=== PATIENT | female | born 1945 | race Caucasian/White ===

== ENCOUNTER 2017-02-14 10:11 | Inpatient (IN) | payer MEDICARE, BC ==
[~2017-02-14 10:11] MED LIST: EPINEPHrine 1 MG/ML SDV ONE; Lactated Ringers 1,000 ML IV SCH; Lidocaine 1%/Sod Bicarbonate in NS 8.4% 1 ML Syringe IV PRN; Ropivacaine 0.5% 5 MG/ML 30 ML SDV ONE; Sodium Chloride 0.9% 10 ML Syringe FLUSH PRN
[2017-02-14] MEDS ORDERED: Lidocaine 1%/Sod Bicarbonate in NS 8.4% 1 ML Syringe PRN (10:20)
[2017-02-14] MEDS ORDERED: Vancomycin 1 GM SDV ONE (10:53)
[2017-02-14] MEDS ORDERED: fentaNYL 100 MCG/2 ML SDV ONE ×3 (10:58→16:41)
[2017-02-14] MEDS ORDERED: Lidocaine 1% 4 ML ONE ×2 (10:58→12:17)
[2017-02-14] MEDS ORDERED: Midazolam 1 MG/ML 2 ML SDV ONE (10:58)
[2017-02-14] MEDS ORDERED: Scopolamine 1.5 MG Transdermal Patch TOP ONE (11:00)
[2017-02-14] MEDS ORDERED: Docusate Sodium 100 MG Cap PO PRN (11:36)
[2017-02-14] MEDS ORDERED: Cyclobenzaprine 10 MG Tab PO PRN (11:36)
[2017-02-14] MEDS ORDERED: Sennosides 8.6 MG Tab PO PRN (11:36)
[2017-02-14] MEDS ORDERED: Naloxone 0.4 MG/ML SDV IVPUSH PRN (11:36)
[2017-02-14] MEDS ORDERED: Magnesium Hydroxide 400 MG/5 ML Susp 30 ML Cup PO PRN (11:36)
[2017-02-14] MEDS ORDERED: Bisacodyl 5 MG Tab PO PRN (11:36)
--- NOTE | 2017-02-14 11:56 | PCM.SN ---
- Free Text/Narrative Note: Anesthesia Note: (Interscalene block note) Dr. Orozco present for the block Date: 02/14/2017 Time Out: 1114 Start: 1125 Stop: 1131 Surgical Procedure: Left Reverse Total Shoulder arthroplasty Diagnosis: Left shoulder osteoarthritis Current Procedure: Left interscalene block under US guidance for postoperative pain control requested by Dr. Mckinney. Patient chart reviewed, risk/benefits discussed with patient, consent obtained. Patient positioned supine, monitors/alarms on, oxygen placed via nasal cannula at 2 LPM. IV sedation administered: Versed 2mg IV @ 1114 Fentanyl 100 mcg IV @ 1119 Left shoulder prepped with chloraprep x1. Sterile drapes placed with aseptic technique. Under US guidance (sterile US sleeve) left subclavian artery visualized along with the left brachial plexus. Plexus followed cephalad up to C6 cricoid level, and area localized with 2mls of 1% lidocaine. 22gauge 2 inch stimiplex needle inserted under US and guided to brachial plexus C5-C6 trunks with 0.44mV with stimulation of biceps noted. Stimulation abolished at 0.2mVs. 1ml of Normal Saline injected with loss of stimulation up to 0.7mA to confirm needle not placed intraneurally. Incremental injection of 5mls with negative aspiration prior to each injection of 0.5% ropivacaine with 1:200,000 epinephrine. Total volume=30mls. Vital Signs: 1115 pre HR: 76 RR: 18 BP: 157/70 Spo2: 99% on 2 LPM nasal cannula 1131 post HR: 75 RR: 14 BP: 126/60 Spo2: 98% on 2LPM nasal cannula
--- NOTE | 2017-02-14 12:06 | PCM.PREANE ---
Preanesthetic Assessment - Procedure Proposed Procedure: Left reverse total shoulder replacement - Anesthesia/Transfusion/Family Hx Anesthesia History: No Prior Anesthesia Type of Anesthesia Reaction: Excessive Nausea/Vomiting Family History of Anesthesia Reaction: No Transfusion History: Prior Transfusion Without Reaction (patient stated she had a transfusion with one of her hip replacement and everything went well) Type of Transfusion Reactions: Reports: Unknown Intubation History: Unknown - Review of Systems General: No Symptoms Pulmonary: No Symptoms Cardiovascular: Other (HTN, hyperlipidemia) Gastrointestinal: No symptoms Neurological: No Symptoms Other: Reports: None - Physical Assessment NPO Status Date: 02/14/17 NPO Status Time: 00:00 O2 Sat by Pulse Oximetry: 98 Respiratory Rate: 14 Vital Signs: Last Vital Signs Temp 37.1 C 02/14/17 10:25 Pulse 75 02/14/17 11:30 Resp 14 02/14/17 11:30 BP 126/60 02/14/17 11:30 Pulse Ox 98 02/14/17 11:30 Height: 1.5 m Weight: 70.76 kg ASA Class: 2 Mental Status: Alert & Oriented x3 Airway Class: Mallampati = 2 Dentition: Reports: Dentures (upper and lower ) Thyro-Mental Finger Breadths: 3 Mouth Opening Finger Breadths: 3 ROM/Head Extension: Full Lungs: Clear to auscultation, Normal respiratory effort Cardiovascular: Regular Rate, Regular Rhythm - Lab Values: Laboratory Last Values MRSA (PCR) Negative 01/28/17 12:16 - Allergies Allergies/Adverse Reactions: Allergies Allergy/AdvReac Type Severity Reaction Status Date / Time meloxicam AdvReac GI UPSET Verified 02/14/17 11:04 Penicillins AdvReac Other Verified 02/14/17 11:04 - Blood Blood Available: No Product(s) Available: None - Anesthesia Plan Pre-Op Medication Ordered: None - Acknowledgements Anesthesia Type Planned: General Anesthesia, Regional Block (left interscalene block) Pt an Appropriate Candidate for the Planned Anesthesia: Yes Alternatives and Risks of Anesthesia Discussed w Pt/Guardian: Yes Pt/Guardian Understands and Agrees with Anesthesia Plan: Yes PreAnesthesia Questionnaire HEENT History: Reports: Impaired Vision Other HEENT History: Uses reading glasses, full dentures Cardiovascular History: Reports: High Cholesterol, Hypertension, Other (See Below) Other Cardiovascular History: lower extremity edema. Takes PRN lasix and potassium. Respiratory History: Reports: None, SOB, Other (See Below) Gastrointestinal History: Reports: GERD, PUD, Other (See Below) Other Gastrointestinal History: dysphagia, hematochezia, ulcers as a child. 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: Reports: Polycystic Ovaries, Other OB/BYN History: x 2 Musculoskeletal History: Reports: Arthritis, Back Pain, Chronic, Osteoarthritis , Other (See Below) Other Musculoskeletal History: Right ankle pain, foot arthritis, bilateral hip arthritis, bilateral carpal tunnel syndrome, neuroforaminal stenosis, facet joint degenerative arthritis, R shoulder impingment syndrome, muscle cramps, myofasical pain, polymyalgia rheumatica, cervical spine stenosis, lower extremity weakness Neurological History: Reports: Other (See Below) Other Neuro History: ataxia, frequent falls, polyneuropathy Psychiatric History: Reports: Panic Attack, Other (See Below) Other Psychiatric History: insomnia Endocrine/Metabolic History: Reports: Obesity/BMI 30+, Vitamin D Deficiency Hematologic History: Reports: Anemia, Iron Deficiency, Other (See Below) Other Hematologic History: multiple contusions, vitamin b 12 deficiency Immunologic History: Reports: Other (See Below) Other Immunologic History: polymyalgia rheumatica Oncologic (Cancer) History: Reports: Basal Cell Carcinoma Dermatologic History: Reports: None - Infectious Disease History Infectious Disease History: Reports: MRSA - Past Surgical History HEENT Surgical History: Reports: Tonsillectomy Cardiovascular Surgical History: Reports: None GI Surgical History: Reports: Colonoscopy, EGD, Hernia Repair/Other Other GI Surgeries/Procedures: partial gastrectomy Female Surgical History: Reports: Hysterectomy Endocrine Surgical History: Reports: None Neurological Surgical History: Reports: Other (See Below) Other Neurological Surgeries/Procedures: posts in back. Musculoskeletal Surgical History: Reports: Carpal Tunnel, Other (See Below) Other Musculoskeletal Surgeries/Procedures:: bilateral carpal tunnel release, left foot bunionectomy, right knee replacement, bilateral hip replacments Oncologic Surgical History: Reports: None Dermatological Surgical History: Reports: Skin Biopsy - SUBSTANCE USE Smoking Status *Q: Never Smoker Tobacco Use Within Last Twelve Months: No Second Hand Smoke Exposure: No Days Per Week of Alcohol Use: 0 Number of Drinks Per Day: 0 Total Drinks Per Week: 0 Recreational Drug Use History: No - HOME MEDS Home Medications: Home Meds RX: Cyanocobalamin (Vitamin B-12) [Cyanocobalamin Injection] 1,000 mcg IM ASDIRECTED 12/13/14 [History] RX: Furosemide [Lasix] 40 mg PO DAILY PRN 12/13/14 [History] RX: Gabapentin 800 mg PO BID 12/13/14 [History] RX: Pantoprazole [ProTONIX] 40 mg PO BID 12/13/14 [History] RX: Cholecalciferol (Vitamin D3) [Vitamin D3] 2,000 mg PO BID 12/16/14 [History] RX: Aspirin/Acetaminophen/Caffeine [Migraine Relief Caplet] 2 - 3 tab PO Q6HR PRN 04/23/16 [History] RX: Clotrimazole [Mycelex] 10 mg PO QID PRN 04/23/16 [History] RX: Diphenhyd/Lidocaine/Nystatin [Magic Mouthwash] 1 dose PO QID PRN 04/23/16 [ History] RX: Potassium Chloride [Klor-Con 10] 10 meq PO DAILY PRN 04/23/16 [History] Excedrin Pm 2 tab PO BEDTIME 09/03/16 [History] RX: Doxycycline Hyclate 1 cap PO BID 09/03/16 [History] RX: Fluconazole [Diflucan] 1 tab PO Q72H 09/03/16 [History] RX: Gabapentin 1 tab PO DAILY PRN 09/03/16 [History] RX: Melatonin 1 - 2 tab PO BEDTIME PRN 09/03/16 [History] RX: Ondansetron 1 tab PO QID PRN 09/03/16 [History] RX: Simvastatin [Zocor] 1 tab PO DAILY 09/03/16 [History] RX: traMADol HCl [Tramadol HCl] 2 tab PO TID 09/03/16 [History] RX: Acetaminophen/oxyCODONE [Percocet 325-5 MG] 1 - 2 tab PO Q4H PRN #60 tablet 09/08/16 [Rx] RX: Cyclobenzaprine [Flexeril] 10 mg PO TID PRN #40 tablet 09/08/16 [Rx] RX: Rivaroxaban [Xarelto] 10 mg PO DAILY #33 tablet 09/08/16 [Rx] - CURRENT (IN HOUSE) MEDS Current Meds: Current Medications Aspirin (Ecotrin) 325 mg PO BID [place] Bisacodyl (Dulcolax) 5 mg PO DAILY PRN PRN Reason: Constipation Cyclobenzaprine HCl (Flexeril) 10 mg PO TID PRN PRN Reason: Spasms Stop: 02/14/17 21:01 Docusate Sodium (Colace) 100 mg PO BID PRN PRN Reason: Constipation Famotidine (Pepcid) 20 mg PO Q12H [facility] Lactated Ringer's (Ringers, Lactated) 1,000 mls @ 125 mls/hr IV ASDIRECTED [facility] Stop: 02/14/17 23:00 Last Admin: 02/14/17 10:42 Dose: 125 mls/hr Cefazolin Sodium/Dextrose 2 gm (/ Premix) 50 mls @ 100 mls/hr IV Q8H [facility] Stop: 02/15/17 11:29 Lidocaine/Sodium Bicarbonate (Buffered Lidocaine 1% In Ns 8.4%) 0.25 ml .XX ONETIME PRN PRN Reason: Prior to IV Start Stop: 02/14/17 14:00 Last Admin: 02/14/17 10:42 Dose: 0.25 ml Magnesium Hydroxide (Milk Of Magnesia) 30 ml PO BID PRN PRN Reason: Constipation Morphine Sulfate (Morphine) 2 mg IVPUSH Q2H PRN PRN Reason: Breakthrough Pain Ondansetron HCl (Zofran) 4 mg IVPUSH Q6H PRN PRN Reason: Nausea/Vomiting Oxycodone/Acetaminophen (Percocet 325-5 Mg) 1 - 2 tab PO Q4H PRN PRN Reason: Pain Senna (Senna) 8.6 mg PO BID PRN PRN Reason: Constipation Sodium Chloride (Saline Flush) 10 ml FLUSH ASDIRECTED PRN PRN Reason: Keep Vein Open Stop: 02/14/17 14:00 Vancomycin HCl (Pharmacy To Dose - Vancomycin) 0 dose .XX ASDIRECTED PRN PRN Reason: RX TO DOSE POSTOP X 24 HOURS Stop: 02/15/17 13:00 Discontinued Medications Bupivacaine HCl (Marcaine 0.25%) Confirm Administered Dose 30 ml .ROUTE .STK- MED ONE Stop: 02/14/17 10:54 Cefazolin Sodium (Ancef) Confirm Administered Dose 2 gm .ROUTE .STK-MED ONE Stop: 02/14/17 10:54 Epinephrine HCl (Adrenalin 1:1000) Confirm Administered Dose 1 mg .ROUTE .STK- MED ONE Stop: 02/14/17 09:46 Fentanyl (Sublimaze) Confirm Administered Dose 100 mcg .ROUTE .STK-MED ONE Stop: 02/14/17 10:59 Vancomycin HCl 1 gm/ Sodium (Chloride) 250 mls @ 250 mls/hr IV ONETIME ONE Stop: 02/14/17 11:44 Last Admin: 02/14/17 11:57 Dose: 250 mls/hr Lidocaine HCl (Xylocaine-Mpf 1%) Confirm Administered Dose 4 mls @ as directed .ROUTE .STK-MED ONE Stop: 02/14/17 10:59 Lidocaine/Sodium Bicarbonate (Buffered Lidocaine 1% In Ns 8.4%) 0.25 ml IV ONETIME PRN PRN Reason: Prior to IV Start Stop: 02/14/17 14:00 Midazolam HCl (Versed 1 Mg/Ml) Confirm Administered Dose 2 mg .ROUTE .STK-MED ONE Stop: 02/14/17 10:59 Naloxone HCl (Narcan) 0.1 mg IVPUSH Q5M PRN PRN Reason: Oversedation Stop: 02/14/17 11:52 Ropivacaine (Naropin 0.5%) Confirm Administered Dose 30 ml .ROUTE .STK-MED ONE Stop: 02/14/17 09:47 Scopolamine (Transderm-Scop) 1.5 mg TOP ONETIME ONE Stop: 02/14/17 11:01 Last Admin: 02/14/17 11:02 Dose: 1.5 mg Tranexamic Acid (Cyklokapron) Confirm Administered Dose 1,000 mg .ROUTE .STK- MED ONE Stop: 02/14/17 10:53 Vancomycin HCl (Vancomycin) Confirm Administered Dose 1 gm .ROUTE .STK-MED ONE Stop: 02/14/17 10:54
[2017-02-14] MEDS ORDERED: Rocuronium 50 MG/5 ML Vial ONE (12:16)
[2017-02-14] MEDS ORDERED: Ondansetron 4 MG/2 ML SDV ONE (12:16)
[2017-02-14] MEDS ORDERED: Propofol 200 MG/20 ML SDV ONE (12:16)
[2017-02-14] MEDS: Bupivacaine 0.25% 30 ML SDV ONE ×2 (13:10→15:55)
[2017-02-14] MEDS: Iodine/Sodium Iodide 2% Tincture 30 ML Bottle ONE ×2 (13:13→15:49)
--- NOTE | 2017-02-14 13:23 | PCM.CONS ---
H&P History of Present Illness - General Date of Service: 02/14/17 Admit Problem/Dx: Admission Diagnosis/Problem Admission Diagnosis/Problem Osteoarthritis of glenohumeral joint Source of Information: Patient, Family, Old Records, Provider, RN Notes Reviewed History Limitations: Reports: Physical Impairment - History of Present Illness Initial Comments - Free Text/Narative: This is a 71-year-old, white female, with past medical history of HTN, HLD, OA, PUD, GERD, hiatal hernia repair, partial gastrectomy, osteoporosis, myalgias/PMR , muscle cramps, C-spine with myelopathy, vitamin B and D deficiency, polyneuropathy, panic attack, iron deficiency anemia, and insomnia who underwent right total shoulder reverse arthroplasty post operative day zero. Patient complaints of headache, nausea and pyrosis. Her pain is controlled. She denies any other acute issues. Medicine was consulted for postoperative care. - Related Data Allergies/Adverse Reactions: Allergies Allergy/AdvReac Type Severity Reaction Status Date / Time meloxicam AdvReac GI UPSET Verified 02/14/17 11:04 Penicillins AdvReac Other Verified 02/14/17 11:04 Home Medications: Home Meds Cyanocobalamin (Vitamin B-12) [Cyanocobalamin Injection] 1,000 mcg IM ASDIRECTED 12/13/14 [History] Furosemide [Lasix] 40 mg PO DAILY PRN 12/13/14 [History] Gabapentin 800 mg PO TID 12/13/14 [History] Pantoprazole [ProTONIX] 40 mg PO BID 12/13/14 [History] Cholecalciferol (Vitamin D3) [Vitamin D3] 2,000 mg PO BID 12/16/14 [History] Aspirin/Acetaminophen/Caffeine [Migraine Relief Caplet] 2 - 3 tab PO Q6HR PRN [History] Clotrimazole [Mycelex] 10 mg PO QID PRN 04/23/16 [History] Diphenhyd/Lidocaine/Nystatin [Magic Mouthwash] 1 dose PO QID PRN 04/23/16 [ History] Potassium Chloride [Klor-Con 10] 10 meq PO DAILY PRN 04/23/16 [History] Doxycycline Hyclate 1 cap PO BID 09/03/16 [History] Excedrin Pm 2 tab PO BEDTIME 09/03/16 [History] Fluconazole [Diflucan] 1 tab PO Q72H 09/03/16 [History] Gabapentin 1 tab PO DAILY PRN 09/03/16 [History] Melatonin 3 tab PO BEDTIME PRN 09/03/16 [History] Ondansetron 1 tab PO QID PRN 09/03/16 [History] Simvastatin [Zocor] 1 tab PO DAILY 09/03/16 [History] traMADol HCl [Tramadol HCl] 2 tab PO TID 09/03/16 [History] Acetaminophen/oxyCODONE [Percocet 325-5 MG] 1 - 2 tab PO Q4H PRN #60 tablet 03/17 [Rx] Rivaroxaban [Xarelto] 10 mg PO DAILY #33 tablet 09/08/16 [Rx] Cyclobenzaprine [Flexeril] 10 mg PO BID PRN 02/14/17 [History] Past Medical History HEENT History: Reports: Impaired Vision Other HEENT History: Uses reading glasses, full dentures Cardiovascular History: Reports: High Cholesterol, Hypertension, Other (See Below) Other Cardiovascular History: lower extremity edema. Takes PRN lasix and potassium. Respiratory History: Reports: None, SOB, Other (See Below) Gastrointestinal History: Reports: GERD, PUD, Other (See Below) Other Gastrointestinal History: dysphagia, hematochezia, ulcers as a child. 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: Polycystic Ovaries, Other OB/BYN History: x 2 Musculoskeletal History: Reports: Arthritis, Back Pain, Chronic, Osteoarthritis , Other (See Below) Other Musculoskeletal History: Right ankle pain, foot arthritis, bilateral hip arthritis, bilateral carpal tunnel syndrome, neuroforaminal stenosis, facet joint degenerative arthritis, R shoulder impingment syndrome, muscle cramps, myofasical pain, polymyalgia rheumatica, cervical spine stenosis, lower extremity weakness Neurological History: Reports: Other (See Below) Other Neuro History: ataxia, frequent falls, polyneuropathy Psychiatric History: Reports: Panic Attack, Other (See Below) Other Psychiatric History: insomnia Endocrine/Metabolic History: Reports: Obesity/BMI 30+, Vitamin D Deficiency Hematologic History: Reports: Anemia, Iron Deficiency, Other (See Below) Other Hematologic History: multiple contusions, vitamin b 12 deficiency Immunologic History: Reports: Other (See Below) Other Immunologic History: polymyalgia rheumatica Oncologic (Cancer) History: Reports: Basal Cell Carcinoma Dermatologic History: Reports: None - Infectious Disease History Infectious Disease History: Reports: MRSA - Past Surgical History HEENT Surgical History: Reports: Tonsillectomy Cardiovascular Surgical History: Reports: None GI Surgical History: Reports: Colonoscopy, EGD, Hernia Repair/Other Other GI Surgeries/Procedures: partial gastrectomy Female Surgical History: Reports: Hysterectomy Endocrine Surgical History: Reports: None Neurological Surgical History: Reports: Other (See Below) Other Neurological Surgeries/Procedures: posts in back. Musculoskeletal Surgical History: Reports: Carpal Tunnel, Other (See Below) Other Musculoskeletal Surgeries/Procedures:: bilateral carpal tunnel release, left foot bunionectomy, right knee replacement, bilateral hip replacments Oncologic Surgical History: Reports: None Dermatological Surgical History: Reports: Skin Biopsy Social & Family History - Family History Family Medical History: Noncontributory - Tobacco Use Smoking Status *Q: Never Smoker Second Hand Smoke Exposure: No - Caffeine Use Caffeine Use: Reports: None - Alcohol Use Days Per Week of Alcohol Use: 0 Number of Drinks Per Day: 0 Total Drinks Per Week: 0 - Recreational Drug Use Recreational Drug Use: No Drug Use in Last 12 Months: No H&P Review of Systems - Review of Systems: Review Of Systems: See Below General: Denies: Fever, Chills, Malaise, Weakness, Fatigue HEENT: Reports: Headaches Pulmonary: Denies: Shortness of Breath Cardiovascular: Denies: Chest Pain, Palpitations, Dyspnea on Exertion, Lightheadedness Gastrointestinal: Reports: Nausea, Other (pyrosis). Denies: Abdominal Pain Genitourinary: Reports: No Symptoms Musculoskeletal: Reports: No Symptoms Skin: Denies: Cyanosis, Pruritis, Rash, Erythema Psychiatric: Denies: Confusion, Depression, Anxiety, Hallucinations, Suicidal Ideation Neurological: Reports: Headache, Difficulty Walking, Weakness, Gait Disturbance. Denies: Confusion Hematologic/Lymphatic: Reports: No Symptoms Immunologic: Reports: No Symptoms Exam - Exam Exam: See Below - Vital Signs Vital Signs: Last Vital Signs Temp 37.1 C 02/14/17 10:25 Pulse 75 02/14/17 11:30 Resp 14 02/14/17 12:07 BP 126/60 02/14/17 11:30 Pulse Ox 98 02/14/17 12:07 Weight: 70.76 kg - Exam Quality Assessment: Supplemental Oxygen General: Alert, Oriented, Cooperative, Mild Distress HEENT: Conjunctiva Clear, EACs Clear, EOMI, Hearing Intact, Mucosa Moist & [place] , Nares Patent, Normal Nasal Septum, Posterior Pharynx Clear, Pupils Equal, Pupils Reactive Neck: Supple, Trachea Midline, +2 Carotid Pulse wo Bruit Lungs: Normal Respiratory Effort, Decreased Breath Sounds Cardiovascular: Regular Rate, Regular Rhythm Abdomen: Normal Bowel Sounds, Soft. No: Organomegaly, Tenderness (Female) Exam: Other (indwelling young catheter) Rectal (Female) Exam: Deferred Back Exam: Decreased Range of Motion Extremities: Normal Inspection, Normal Pulses, Other (left arm currently immobilized). No: Edema Peripheral Pulses: 2+: Posterior Tibial (L), Posterior Tibial (R), Dorsalis Pedis (L), Dorsalis Pedis (R) Skin: Warm, Dry, Intact, Other (surgical scar on rigth shoulder) Neuro Extensive - Mental Status: Oriented x3, Normal Cognition, Memory Intact Neuro Extensive - Motor, Sensory, Reflexes: CN II-XII Intact (limited but fairly intact), Abnormal Gait Psychiatric: Alert, Normal Affect Consult PN Assessment/Plan POD#: 0 Procedures: Procedures AIRWAY INHALATION TREATMENT (04/26/16) BLOOD CULTURE FOR BACTERIA (12/16/14) BLOOD TRANSFUSION SERVICE (04/26/16) BLOOD TYPING SEROLOGIC ABO (09/06/16) BLOOD TYPING SEROLOGIC RH(D) (09/06/16) C-REACTIVE PROTEIN (04/26/16) CHEST WALL MANIPULATION (04/26/16) CHEST WALL MANIPULATION (04/26/16) CHEST X-RAY 1 VIEW FRONTAL (12/16/14) CHEST X-RAY 2VW FRONTAL&LATL (04/26/16) COMPATIBILITY TEST ANTIGLOB (04/26/16) COMPLETE CBC AUTOMATED (04/26/16) COMPLETE CBC W/AUTO DIFF WBC (09/06/16) COMPREHEN METABOLIC PANEL (09/06/16) DRAIN/INJ JOINT/BURSA W/O US (03/30/16) DXA BONE DENSITY AXIAL (04/22/16) ELECTROCARDIOGRAM TRACING (12/16/14) ELECTROLYTE PANEL (09/06/16) EVALUATE PT USE OF INHALER (04/26/16) EXTREMITY STUDY (04/26/16) FLUOROSCOPE EXAMINATION (12/16/14) GAIT TRAINING THERAPY (09/06/16) HEMATOCRIT (04/26/16) HEMOGLOBIN (04/26/16) MEASURE BLOOD OXYGEN LEVEL (04/26/16) MEASURE BLOOD OXYGEN LEVEL (12/16/14) METABOLIC PANEL TOTAL CA (09/06/16) MICROBE SUSCEPTIBLE SHAMA (12/16/14) MR-STAPH DNA AMP PROBE (04/15/16) NEEDLE LOCALIZATION BY XRAY (03/21/15) OT EVAL LOW COMPLEX 30 MIN (09/06/16) OT EVALUATION (04/26/16) PROTHROMBIN TIME (09/06/16) PT EVAL LOW COMPLEX 20 MIN (09/06/16) PT EVALUATION (04/26/16) RBC ANTIBODY SCREEN (09/06/16) ROUTINE VENIPUNCTURE (09/06/16) SELF CARE MNGMENT TRAINING (09/06/16) THERAPEUTIC ACTIVITIES (09/06/16) THERAPEUTIC EXERCISES (09/06/16) URINALYSIS AUTO W/SCOPE (04/26/16) URINE BACTERIA CULTURE (12/16/14) URINE CULTURE/COLONY COUNT (12/16/14) X-RAY EXAM HIP UNI 1 VIEW (09/06/16) X-RAY EXAM OF SHOULDER (12/16/14) Problem List Initiated/Reviewed/Updated: Yes Plan: Assessment: Acute: Post-Operative Care State - Fairly stable - Continue to monitor for hemodynamic instability S/p Left Total Shoulder Reverse Arthroplasty - Stable - DVT and Pain Management as per primary team Hx/o Chronic Left Shoulder Pain 2/2 OA - Pain Management as per primary team Post Operative Pyrosis - Carries hx/o GERD/PUD - Protonix IVP x1 now - Resume Home Dose PPI Post-Operative Nausea/Vomiting - PRN Anti-emisis - Scopolamine Patch - Benadryl IVP to augment if no relief Post-Operative ANTHONY - Patient drinks coffee at least 4 cups a day - Fioricet PRN for treatment Chronic: HTN HLD PUD Partial Gastrectomy GERD Hiatal Hernia Repair Osteoporosis Myalgia/PMR Muscle Cramps C-Spine with Myelopathy Polyneuropathy APOLONIA Vit B and D Deficiency Panic Attack Insomnia Plan: She is clinically stable Routine AM labs Continue home meds PT/OT consult IS q2 awake Thank you for the opportunity to participate in the management of this patient. Requesting Provider: Dr. Mckinney Date Consult Requested: 02/14/17 Reason for Consult: Post-Operative Care Patient History Reviewed: Yes Admission H&P Reviewed: Yes Consult Result/Summary: Fairly Stable
[2017-02-14] MEDS ORDERED: Phenylephrine/Normal Saline 100 MCG/ML 10 ML Syringe ONE (14:22)
[2017-02-14] MEDS: ceFAZolin 1 GM Vial ONE ×2 (14:26→15:35)
[2017-02-14] MEDS ORDERED: Lactated Ringers 1,000 ML ONE (15:49)
[2017-02-14] MEDS ORDERED: fentaNYL 250 MCG/5 ML SDV IVPUSH PRN (16:31)
--- NOTE | 2017-02-14 16:33 | PCM.POSTAN ---
POST ANESTHESIA ASSESSMENT - MENTAL STATUS Mental Status: alert, oriented - VITAL SIGNS Pulse Rate: 96 SaO2: 95 Resp Rate: 14 Blood Pressure: 134/62 Temperature: 36.6 C - RESPIRATORY Respiratory Status: respiratory rate WNL, airway patent, O2 saturation stable, supplemental oxygen - CARDIOVASCULAR CV Status: pulse rate WNL, blood pressure stable - GASTROINTESTINAL GI Status: no symptoms - PAIN Pain Score: 0 - POST OP HYDRATION Hydration Status: adequate & stable - OBSERVATIONS Free Text/Narrative:: no anesthesia complications noted
--- NOTE | 2017-02-14 16:53 | CR ---
Left shoulder: Single portable view of the left shoulder was obtained utilizing portable technique. Comparison: Previous fluoroscopic study performed earlier on the same day left (3:41 PM). Reverse left shoulder prosthesis is seen. Components are aligned. Underlying bony structures are intact. Impression: 1. Satisfactory radiographic appearance of recently placed left shoulder prosthesis. Diagnostic code #1
[2017-02-14] MEDS ORDERED: Diphtheria,Pertussis(Acell),Tetanus Vaccine 0.5 ML SDV IM ONE (17:29)
[2017-02-14] MEDS ORDERED: Pantoprazole 40 MG Vial IVPUSH ONE (18:35)
[2017-02-14] MEDS: Acetaminophen/Butalbital/Caffeine 325-50-40 MG Tab PO PRN (18:49)
[2017-02-14] MEDS: ceFAZolin 2 GM in Premix Bag 1 BAG IV SCH (18:53)
[2017-02-14] MEDS: Famotidine 20 MG Tab PO SCH (20:41)
[2017-02-14] MEDS: Acetaminophen/oxyCODONE 325-5 MG Tab PO PRN (20:41)
[2017-02-14] MEDS ORDERED: NYSTATIN PO PRN (21:11)
[2017-02-14] MEDS ORDERED: Furosemide 40 MG Tab PO PRN (21:11)
[2017-02-14] MEDS ORDERED: MELATONIN PO PRN (21:11)
[2017-02-14] MEDS ORDERED: LIDOCAINE PO PRN (21:11)
[2017-02-14] MEDS ORDERED: GABAPENTIN PO PRN (21:11)
[2017-02-14] MEDS ORDERED: Potassium Chloride 10 MEQ Tab.ER PO PRN (21:11)
[2017-02-14] MEDS ORDERED: DIPHENHYD PO PRN (21:11)
[2017-02-14] MEDS ORDERED: Cyanocobalamin (Vitamin B12) 1,000 MCG/ML SDV IM SCH (21:15)
[2017-02-14] MEDS: Cyclobenzaprine 10 MG Tab PO PRN (23:26)
[2017-02-14] MEDS ORDERED: Temazepam 15 MG Cap PO PRN (23:42)
[2017-02-15] MEDS: Acetaminophen/oxyCODONE 325-5 MG Tab PO PRN ×4 (00:20→15:16)
[2017-02-15] MEDS: Benzocaine/Cetylpyridinium/Menthol Lozenge MUCMEM PRN ×2 (00:20→11:19)
[2017-02-15] MEDS: Morphine 2 MG/ML Syringe IVPUSH PRN ×4 (01:43→11:16)
[2017-02-15] MEDS: ceFAZolin 2 GM in Premix Bag 1 BAG IV SCH ×3 (01:45→11:15)
[2017-02-15] MEDS: Acetaminophen/Butalbital/Caffeine 325-50-40 MG Tab PO PRN (03:03)
[2017-02-15] MEDS: Pantoprazole 40 MG Tab.CR PO SCH ×3 (04:27→15:17)
--- NOTE | 2017-02-15 08:00 | PCM.CONSN ---
- General Info Date of Service: 02/15/17 Admission Dx/Problem (Free Text): Admission Diagnosis/Problem Admission Diagnosis/Problem Osteoarthritis of glenohumeral joint Subjective Update: Follow Up Functional Status: Reports: tolerating diet, ambulating, urinating, new symptoms (migraine that is chronic but no more than usual to her). Denies: pain controlled Pain Score: 10 - Review of Systems General: Denies: Fever, Weakness, Fatigue, Malaise, Chills HEENT: Reports: no symptoms Pulmonary: Denies: shortness of breath Cardiovascular: Denies: Chest Pain Gastrointestinal: Denies: Abdominal pain, Nausea, Vomiting Genitourinary: Reports: no symptoms Musculoskeletal: Reports: shoulder pain, arm pain Skin: Denies: cyanosis, jaundice, rash Neurological: Reports: Confusion. Denies: Dizziness, Difficulty Walking, Weakness, Gait Disturbance Psychiatric: Denies: depression, anxiety, agitation, hallucinations Systems Review Comment:: She did not sleep good last night due to pain. She still has migraine but no more than usual. Her pyrosis is gone. No nausea or vomiting. Her pain is not well controlled. - Patient Data Vitals - most recent: Last Vital Signs Temp 36.4 C 02/14/17 20:04 Pulse 99 02/15/17 05:01 Resp 14 02/14/17 20:04 BP 144/64 H 02/15/17 05:01 Pulse Ox 90 L 02/15/17 05:01 Weight - most recent: 72.83 kg I&O - last 24 hours: Intake & Output 02/14/17 02/15/17 02/15/17 22:59 06:59 14:59 Intake Total 900 Output Total 2000 Balance -1100 Lab Results last 24 hrs: Laboratory Results - last 24 hr 02/15/17 02/15/17 Range/Units 05:46 05:46 WBC 9.62 (3.98-10.04) K/mm3 RBC 3.59 L (3.98-5.22) M/mm3 Hgb 11.0 L (11.2-15.7) gm/L Hct 34.2 (34.1-44.9) % MCV 95.3 H (79.4-94.8) fl MCH 30.6 (25.6-32.2) pg MCHC 32.2 (32.2-35.5) g/dl RDW Std Deviation 55.2 H (36.4-46.3) fL Plt Count 282 (182-369) K/mm3 MPV 9.1 L (9.4-12.3) fl Neut % (Auto) 72.7 H (34.0-71.1) % Lymph % (Auto) 12.4 L (19.3-51.7) % Castro % (Auto) 12.6 H (4.7-12.5) % Eos % (Auto) 1.5 (0.7-5.8) Baso % (Auto) 0.6 (0.1-1.2) % Neut # (Auto) 7.00 H (1.56-6.13) K/mm3 Lymph # (Auto) 1.19 (1.18-3.74) K/mm3 Castro # (Auto) 1.21 H (0.24-0.36) K/mm3 Eos # (Auto) 0.14 (0.04-0.36) K/mm3 Baso # (Auto) 0.06 (0.01-0.08) K/mm3 Sodium 140 (136-145) mEq/L Potassium 3.7 (3.5-5.1) mEq/L Chloride 106 (98-107) mEq/L Carbon Dioxide 25 (21-32) mEq/L Anion Gap 12.7 (5-15) BUN 10 (7-18) mg/dL Creatinine 0.8 (0.55-1.02) mg/dL Est Cr Clr Drug Dosing 47.67 mL/min Estimated GFR (MDRD) > 60 (>60) mL/min BUN/Creatinine Ratio 12.5 L (14-18) Glucose 125 H (80-115) mg/dL Calcium 8.7 (8.5-10.1) mg/dL Total Bilirubin 0.3 (0.2-1.0) mg/dL AST 22 (15-37) U/L ALT 20 (14-59) U/L Alkaline Phosphatase 99 (46-116) U/L Total Protein 5.8 L (6.4-8.2) g/dl Albumin 3.1 L (3.4-5.0) g/dl Globulin 2.7 gm/dL Albumin/Globulin Ratio 1.2 (1-2) Med Orders - Current: Current Medications Acetaminophen/Butalbital/Caffeine (Fioricet 325-50-40 Mg) 2 tab PO Q6H PRN PRN Reason: Pain Last Admin: 02/15/17 03:03 Dose: 2 tab Aspirin (Ecotrin) 325 mg PO BID [facility] Benzocaine/Menthol (Cepacol Sore Throat) 1 lozenge MUCMEM QID PRN PRN Reason: Sore Throat Last Admin: 02/15/17 00:20 Dose: 1 lozenge Bisacodyl (Dulcolax) 5 mg PO DAILY PRN PRN Reason: Constipation Cholecalciferol (Vitamin D3) 2,000 units PO BID [facility] Cyclobenzaprine HCl (Flexeril) 10 mg PO BID PRN PRN Reason: muscle spasms Last Admin: 02/14/17 23:26 Dose: 10 mg Docusate Sodium (Colace) 100 mg PO BID PRN PRN Reason: Constipation Famotidine (Pepcid) 20 mg PO Q12H [facility] Last Admin: 02/14/17 20:41 Dose: 20 mg Furosemide (Lasix) 40 mg PO DAILY PRN PRN Reason: Edema Gabapentin (Neurontin) 800 mg PO TID [facility] Cefazolin Sodium/Dextrose 2 gm (/ Premix) 50 mls @ 100 mls/hr IV Q8H [facility] Stop: 02/15/17 11:29 Last Admin: 02/15/17 02:07 Dose: Not Given Vancomycin HCl 1 gm/ Sodium (Chloride) 250 mls @ 250 mls/hr IV Q12H [facility] Stop: 02/15/17 12:59 Last Admin: 02/14/17 23:26 Dose: 250 mls/hr Magnesium Hydroxide (Milk Of Magnesia) 30 ml PO BID PRN PRN Reason: Constipation Morphine Sulfate (Morphine) 2 mg IVPUSH Q2H PRN PRN Reason: Breakthrough Pain Last Admin: 02/15/17 04:26 Dose: 2 mg Ondansetron HCl (Zofran) 4 mg IVPUSH Q6H PRN PRN Reason: Nausea/Vomiting Oxycodone/Acetaminophen (Percocet 325-5 Mg) 1 - 2 tab PO Q4H PRN PRN Reason: Pain Last Admin: 02/15/17 04:25 Dose: 2 tab [facility] Last Admin: 02/15/17 05:06 Dose: Not Given Senna (Senna) 8.6 mg PO BID PRN PRN Reason: Constipation Simvastatin (Zocor) 40 mg PO DAILY [facility] Temazepam (Restoril) 15 mg PO BEDTIME PRN PRN Reason: Sleep Last Admin: 02/15/17 00:20 Dose: 15 mg Vancomycin HCl (Pharmacy To Dose - Vancomycin) 0 dose .XX ASDIRECTED PRN PRN Reason: RX TO DOSE POSTOP X 24 HOURS Stop: 02/15/17 13:00 Discontinued Medications Bupivacaine HCl (Marcaine 0.25%) Confirm Administered Dose 30 ml .ROUTE .STK- MED ONE Stop: 02/14/17 10:54 Last Admin: 02/14/17 15:55 Dose: 30 ml Cefazolin Sodium (Ancef) Confirm Administered Dose 2 gm .ROUTE .STK-MED ONE Stop: 02/14/17 10:54 Last Admin: 02/14/17 15:35 Dose: 2 gm Cholecalciferol (Vitamin D3) units PO BID [facility] Cyanocobalamin (Vitamin B12) 1,000 mcg IM ASDIRECTED [facility] Cyclobenzaprine HCl (Flexeril) 10 mg PO TID PRN PRN Reason: Spasms Stop: 02/14/17 21:01 Diphtheria/Tetanus/Acell Pertussis (Adacel) 0.5 ml IM .ONCE ONE Stop: 02/14/17 17:30 Epinephrine HCl (Adrenalin 1:1000) Confirm Administered Dose 1 mg .ROUTE .STK- MED ONE Stop: 02/14/17 09:46 Fentanyl (Sublimaze) Confirm Administered Dose 100 mcg .ROUTE .STK-MED ONE Stop: 02/14/17 10:59 Fentanyl (Sublimaze) Confirm Administered Dose 100 mcg .ROUTE .STK-MED ONE Stop: 02/14/17 12:27 Fentanyl (Sublimaze) 50 mcg IVPUSH Q5M PRN PRN Reason: PAIN Last Admin: 02/14/17 16:49 Dose: 50 mcg Fentanyl (Sublimaze) Confirm Administered Dose 100 mcg .ROUTE .STK-MED ONE Stop: 02/14/17 16:42 Last Admin: 02/14/17 17:30 Dose: Not Given Glycopyrrolate () Confirm Administered Dose 1 mg .ROUTE .STK-MED ONE Stop: 02/14/17 14:42 Lactated Ringer's (Ringers, Lactated) 1,000 mls @ 125 mls/hr IV ASDIRECTED [facility] Stop: 02/14/17 23:00 Last Admin: 02/14/17 10:42 Dose: 125 mls/hr Vancomycin HCl 1 gm/ Sodium (Chloride) 250 mls @ 250 mls/hr IV ONETIME ONE Stop: 02/14/17 11:44 Last Admin: 02/14/17 11:57 Dose: 250 mls/hr Lidocaine HCl (Xylocaine-Mpf 1%) Confirm Administered Dose 4 mls @ as directed .ROUTE .STK-MED ONE Stop: 02/14/17 10:59 Lidocaine HCl (Xylocaine-Mpf 1%) Confirm Administered Dose 4 mls @ as directed .ROUTE .STK-MED ONE Stop: 02/14/17 12:18 Lactated Ringer's (Ringers, Lactated) Confirm Administered Dose 1,000 mls @ as directed .ROUTE .STK-MED ONE Stop: 02/14/17 15:50 Iodine (Iodine 2% Mild Tincture) Confirm Administered Dose 30 ml .ROUTE .STK- MED ONE Stop: 02/14/17 11:56 Last Admin: 02/14/17 15:49 Dose: 30 ml Lidocaine/Sodium Bicarbonate (Buffered Lidocaine 1% In Ns 8.4%) 0.25 ml IV ONETIME PRN PRN Reason: Prior to IV Start Stop: 02/14/17 14:00 Lidocaine/Sodium Bicarbonate (Buffered Lidocaine 1% In Ns 8.4%) 0.25 ml .XX ONETIME PRN PRN Reason: Prior to IV Start Stop: 02/14/17 14:00 Last Admin: 02/14/17 10:42 Dose: 0.25 ml Midazolam HCl (Versed 1 Mg/Ml) Confirm Administered Dose 2 mg .ROUTE .STK-MED ONE Stop: 02/14/17 10:59 Naloxone HCl (Narcan) 0.1 mg IVPUSH Q5M PRN PRN Reason: Oversedation Stop: 02/14/17 11:52 Non-Formulary Medication (Melatonin [Melatonin]) 3 tab PO BEDTIME PRN PRN Reason: Insomnia Non-Formulary Medication (Gabapentin) 1 tab PO DAILY PRN PRN Reason: Pain Non-Formulary Medication (Excedrin Pm) 2 tab PO BEDTIME [facility] Non-Formulary Medication (Diphenhyd/Lidocaine/Nystatin) 1 dose PO QID PRN PRN Reason: DRY MOUTH Ondansetron HCl (Zofran) Confirm Administered Dose 4 mg .ROUTE .STK-MED ONE Stop: 02/14/17 12:17 Pantoprazole Sodium (Protonix Iv) 40 mg IVPUSH ONETIME ONE Stop: 02/14/17 18:36 Last Admin: 02/14/17 18:50 Dose: 40 mg Phenylephrine HCl (Phenylephrine In Ns 100 Mcg/Ml) Confirm Administered Dose 1 mg .ROUTE .STK-MED ONE Stop: 02/14/17 14:23 Potassium Chloride (Klor-Con 10) 10 meq PO DAILY PRN PRN Reason: Electrolyte Replacement Propofol (Diprivan 20 Ml) Confirm Administered Dose 200 mg .ROUTE .STK-MED ONE Stop: 02/14/17 12:17 Rocuronium [place] (Zemuron) Confirm Administered Dose 50 mg .ROUTE .STK-MED ONE Stop: 02/14/17 12:17 Ropivacaine (Naropin 0.5%) Confirm Administered Dose 30 ml .ROUTE .STK-MED ONE Stop: 02/14/17 09:47 Scopolamine (Transderm-Scop) 1.5 mg TOP ONETIME ONE Stop: 02/14/17 11:01 Last Admin: 02/14/17 11:02 Dose: 1.5 mg Sodium Chloride (Saline Flush) 10 ml FLUSH ASDIRECTED PRN PRN Reason: Keep Vein Open Stop: 02/14/17 14:00 Tranexamic Acid (Cyklokapron) Confirm Administered Dose 1,000 mg .ROUTE .STK- MED ONE Stop: 02/14/17 10:53 Last Admin: 02/14/17 15:59 Dose: 1,000 mg Vancomycin HCl (Vancomycin) Confirm Administered Dose 1 gm .ROUTE .STK-MED ONE Stop: 02/14/17 10:54 - Exam General: alert, oriented, cooperative, no acute distress HEENT: Pupils equal, Pupils reactive, EOMI, Mucous membr. moist/pink Neck: supple, trachea midline, no JVD Lungs: Normal respiratory effort, Decreased breath sounds Cardiovascular: Regular Rate, Regular Rhythm GI/Abdominal Exam: Normal Bowel Sounds, Soft, Non-Tender, No Organomegaly, No Distention (Female) Exam: Deferred Back Exam: Normal Inspection, Decreased Range of Motion, Other (left arm is immobilized) Extremities: Normal Inspection, Normal Range of Motion, Non-Tender, No Pedal Edema Peripheral Pulses: 2+: Dorsalis Pedis (L), Dorsalis Pedis (R) Skin: warm, dry, intact Neurological: no new focal deficit Psy/Mental Status: alert, normal affect, normal mood Consult PN Assessment/Plan POD#: 1 Procedures: Procedures AIRWAY INHALATION TREATMENT (04/26/16) BLOOD CULTURE FOR BACTERIA (12/16/14) BLOOD TRANSFUSION SERVICE (04/26/16) BLOOD TYPING SEROLOGIC ABO (09/06/16) BLOOD TYPING SEROLOGIC RH(D) (09/06/16) C-REACTIVE PROTEIN (04/26/16) CHEST WALL MANIPULATION (04/26/16) CHEST WALL MANIPULATION (04/26/16) CHEST X-RAY 1 VIEW FRONTAL (12/16/14) CHEST X-RAY 2VW FRONTAL&LATL (04/26/16) COMPATIBILITY TEST ANTIGLOB (04/26/16) COMPLETE CBC AUTOMATED (04/26/16) COMPLETE CBC W/AUTO DIFF WBC (09/06/16) COMPREHEN METABOLIC PANEL (09/06/16) DRAIN/INJ JOINT/BURSA W/O US (03/30/16) DXA BONE DENSITY AXIAL (04/22/16) ELECTROCARDIOGRAM TRACING (12/16/14) ELECTROLYTE PANEL (09/06/16) EVALUATE PT USE OF INHALER (04/26/16) EXTREMITY STUDY (04/26/16) FLUOROSCOPE EXAMINATION (12/16/14) GAIT TRAINING THERAPY (09/06/16) HEMATOCRIT (04/26/16) HEMOGLOBIN (04/26/16) MEASURE BLOOD OXYGEN LEVEL (04/26/16) MEASURE BLOOD OXYGEN LEVEL (12/16/14) METABOLIC PANEL TOTAL CA (09/06/16) MICROBE SUSCEPTIBLE SHAMA (12/16/14) MR-STAPH DNA AMP PROBE (04/15/16) NEEDLE LOCALIZATION BY XRAY (03/21/15) OT EVAL LOW COMPLEX 30 MIN (09/06/16) OT EVALUATION (04/26/16) PROTHROMBIN TIME (09/06/16) PT EVAL LOW COMPLEX 20 MIN (09/06/16) PT EVALUATION (04/26/16) RBC ANTIBODY SCREEN (09/06/16) ROUTINE VENIPUNCTURE (09/06/16) SELF CARE MNGMENT TRAINING (09/06/16) THERAPEUTIC ACTIVITIES (09/06/16) THERAPEUTIC EXERCISES (09/06/16) URINALYSIS AUTO W/SCOPE (04/26/16) URINE BACTERIA CULTURE (12/16/14) URINE CULTURE/COLONY COUNT (12/16/14) X-RAY EXAM HIP UNI 1 VIEW (09/06/16) X-RAY EXAM OF SHOULDER (12/16/14) Problem List Initiated/Reviewed/Updated: Yes My Orders last 24 hours: My Active Orders 02/14/17 17:49 Acetaminophen/Butalbital/Caff [Fioricet 325-50-40 MG] 2 tab PO Q6H PRN 02/14/17 21:11 Cyclobenzaprine [Flexeril] 10 mg PO BID PRN Furosemide [Lasix] 40 mg PO DAILY PRN 02/14/17 23:42 Benzocaine/Cetylpyrd/Menthol [Cepacol Sore Throat] 1 lozenge MUCMEM QID PRN Temazepam [Restoril] 15 mg PO BEDTIME PRN 02/15/17 06:00 Pantoprazole [ProTONIX] 40 mg PO BIDAC 02/15/17 09:00 Cholecalciferol (Vitamin D3) [Vitamin D3] 2,000 units PO BID Gabapentin [Neurontin] 800 mg PO TID Simvastatin [Zocor] 40 mg PO DAILY Plan: Assessment: Acute: Post-Operative Care State - Stable - Continue to monitor for hemodynamic instability S/p Left Total Shoulder Reverse Arthroplasty - Stable - DVT and Pain Management as per primary team Hx/o Chronic Left Shoulder Pain 2/2 OA - Pain is not well controlled - Pain Management as per primary team Migraine ANTHONY - She gets it a lot but no more than usual - Cautioned on narcotic abuse - Continue home medications and PRN Fioricet Resolved: Post Operative Pyrosis - Carries hx/o GERD/PUD - Protonix IVP x1 now - Resume Home Dose PPI Post-Operative Nausea/Vomiting - PRN Anti-emisis - Scopolamine Patch - Benadryl IVP to augment if no relief Chronic: HTN HLD PUD Partial Gastrectomy GERD Hiatal Hernia Repair Osteoporosis Myalgia/PMR Muscle Cramps C-Spine with Myelopathy Polyneuropathy APOLONIA Vit B and D Deficiency Panic Attack Insomnia Plan: She remains clinically stable Routine AM labs Continue home meds Continue PT/OT IS q2 awake From the Hospitalist standpoint, patient is doing just fine. We have no further recommendations but to continue current treatment. We are signing off her care. Please feel free to re-consult us for any questions or concerns. Again, thank you for allowing us to participate in the management of this patient.
[2017-02-15] MEDS: Gabapentin 100 MG Cap PO SCH ×2 (08:05→15:17)
[2017-02-15] MEDS: Famotidine 20 MG Tab PO SCH (08:07)
--- NOTE | 2017-02-15 08:07 | CR ---
Left shoulder: Three fluoroscopic spot views were obtained during shoulder surgery utilizing C-arm device. Left shoulder prosthesis is seen. Alignment appears within normal limits. Fluoroscopy time is given as 5.5 seconds. Impression: 1. Findings as noted above. Diagnostic code #2
[2017-02-15] MEDS: Ondansetron 4 MG/2 ML SDV IVPUSH PRN ×2 (08:47→15:17)
[2017-02-15] MEDS ORDERED: Cholecalciferol (Vitamin D3) 1,000 Unit Tab PO SCH ×2 (09:00)
[2017-02-15] MEDS ORDERED: Aspirin 325 MG Tab.EC PO SCH (09:00)
[2017-02-15] MEDS ORDERED: Simvastatin 40 MG Tab PO SCH (09:00)
[2017-02-15] MEDS: Cyclobenzaprine 10 MG Tab PO PRN (11:16)
[2017-02-15 12:19] VITALS: BP 126/82
[2017-02-15] MEDS ORDERED: oxyCODONE 5 MG Tab PO ONE (12:44)
[2017-02-15] MEDS ORDERED: Ketorolac 15 MG/ML SDV IM ONE (12:56)
--- NOTE | 2017-02-15 13:19 | PCM.SURGPN ---
- General Info Date of Service: 02/15/17 POD#: 1 Functional Status: Reports: tolerating diet, ambulating, urinating. Denies: new symptoms - Review of Systems Musculoskeletal: Reports: other (The pt has been participating in P.T. and O.T.) - Patient Data Vitals - most recent: Last Vital Signs Temp 98.8 F 02/15/17 08:00 Pulse 99 02/15/17 12:18 Resp 16 02/15/17 12:18 BP 126/82 02/15/17 12:18 Pulse Ox 94 L 02/15/17 12:18 Weight - most recent: 160 lb 9 oz I&O - last 24 hours: Intake & Output 02/14/17 02/15/17 02/15/17 22:59 06:59 14:59 Intake Total 900 250 Output Total 2000 Balance -1100 250 Lab Results last 24 hrs: Laboratory Results - last 24 hr 02/15/17 02/15/17 Range/Units 05:46 05:46 WBC 9.62 (3.98-10.04) K/mm3 RBC 3.59 L (3.98-5.22) M/mm3 Hgb 11.0 L (11.2-15.7) gm/L Hct 34.2 (34.1-44.9) % MCV 95.3 H (79.4-94.8) fl MCH 30.6 (25.6-32.2) pg MCHC 32.2 (32.2-35.5) g/dl RDW Std Deviation 55.2 H (36.4-46.3) fL Plt Count 282 (182-369) K/mm3 MPV 9.1 L (9.4-12.3) fl Neut % (Auto) 72.7 H (34.0-71.1) % Lymph % (Auto) 12.4 L (19.3-51.7) % [place] % (Auto) 12.6 H (4.7-12.5) % Eos % (Auto) 1.5 (0.7-5.8) Baso % (Auto) 0.6 (0.1-1.2) % Neut # (Auto) 7.00 H (1.56-6.13) K/mm3 Lymph # (Auto) 1.19 (1.18-3.74) K/mm3 [place] # (Auto) 1.21 H (0.24-0.36) K/mm3 Eos # (Auto) 0.14 (0.04-0.36) K/mm3 Baso # (Auto) 0.06 (0.01-0.08) K/mm3 Sodium 140 (136-145) mEq/L Potassium 3.7 (3.5-5.1) mEq/L Chloride 106 (98-107) mEq/L Carbon Dioxide 25 (21-32) mEq/L Anion Gap 12.7 (5-15) BUN 10 (7-18) mg/dL Creatinine 0.8 (0.55-1.02) mg/dL Est Cr Clr Drug Dosing 47.67 mL/min Estimated GFR (MDRD) > 60 (>60) mL/min BUN/Creatinine Ratio 12.5 L (14-18) Glucose 125 H (80-115) mg/dL Calcium 8.7 (8.5-10.1) mg/dL Total Bilirubin 0.3 (0.2-1.0) mg/dL AST 22 (15-37) U/L ALT 20 (14-59) U/L Alkaline Phosphatase 99 (46-116) U/L Total Protein 5.8 L (6.4-8.2) g/dl Albumin 3.1 L (3.4-5.0) g/dl Globulin 2.7 gm/dL Albumin/Globulin Ratio 1.2 (1-2) Med Orders - Current: Current Medications Acetaminophen/Butalbital/Caffeine (Fioricet 325-50-40 Mg) 2 tab PO Q6H PRN PRN Reason: Pain Last Admin: 02/15/17 03:03 Dose: 2 tab Aspirin (Ecotrin) 325 mg PO BID [facility] Last Admin: 02/15/17 08:07 Dose: 325 mg Benzocaine/Menthol (Cepacol Sore Throat) 1 lozenge MUCMEM QID PRN PRN Reason: Sore Throat Last Admin: 02/15/17 11:19 Dose: 1 lozenge Bisacodyl (Dulcolax) 5 mg PO DAILY PRN PRN Reason: Constipation Cholecalciferol (Vitamin D3) 2,000 units PO BID [facility] Last Admin: 02/15/17 08:07 Dose: 2,000 units Cyclobenzaprine HCl (Flexeril) 10 mg PO BID PRN PRN Reason: muscle spasms Last Admin: 02/15/17 11:16 Dose: 10 mg Docusate Sodium (Colace) 100 mg PO BID PRN PRN Reason: Constipation Last Admin: 02/15/17 08:06 Dose: 100 mg Furosemide (Lasix) 40 mg PO DAILY PRN PRN Reason: Edema Gabapentin (Neurontin) 800 mg PO TID [facility] Last Admin: 02/15/17 08:05 Dose: 800 mg Magnesium Hydroxide (Milk Of Magnesia) 30 ml PO BID PRN PRN Reason: Constipation Morphine Sulfate (Morphine) 2 mg IVPUSH Q2H PRN PRN Reason: Breakthrough Pain Last Admin: 02/15/17 11:16 Dose: 2 mg Ondansetron HCl (Zofran) 4 mg IVPUSH Q6H PRN PRN Reason: Nausea/Vomiting Last Admin: 02/15/17 08:47 Dose: 4 mg Oxycodone/Acetaminophen (Percocet 325-5 Mg) 1 - 2 tab PO Q4H PRN PRN Reason: Pain Last Admin: 02/15/17 08:06 Dose: 2 tab Pantoprazole Sodium (Protonix) 40 mg PO BIDAC [facility] Last Admin: 02/15/17 05:06 Dose: Not Given Senna (Senna) 8.6 mg PO BID PRN PRN Reason: Constipation Simvastatin (Zocor) 40 mg PO DAILY [facility] Last Admin: 02/15/17 08:06 Dose: 40 mg Temazepam (Restoril) 15 mg PO BEDTIME PRN PRN Reason: Sleep Last Admin: 02/15/17 00:20 Dose: 15 mg Discontinued Medications Bupivacaine HCl (Marcaine 0.25%) Confirm Administered Dose 30 ml .ROUTE .STK- MED ONE Stop: 02/14/17 10:54 Last Admin: 02/14/17 15:55 Dose: 30 ml Cefazolin Sodium (Ancef) Confirm Administered Dose 2 gm .ROUTE .STK-MED ONE Stop: 02/14/17 10:54 Last Admin: 02/14/17 15:35 Dose: 2 gm Cholecalciferol (Vitamin D3) units PO BID [facility] Cyanocobalamin (Vitamin B12) 1,000 mcg IM ASDIRECTED [facility] Cyclobenzaprine HCl (Flexeril) 10 mg PO TID PRN PRN Reason: Spasms Stop: 02/14/17 21:01 Diphtheria/Tetanus/Acell Pertussis (Adacel) 0.5 ml IM .ONCE ONE Stop: 02/14/17 17:30 Epinephrine HCl (Adrenalin 1:1000) Confirm Administered Dose 1 mg .ROUTE .STK- MED ONE Stop: 02/14/17 09:46 Famotidine (Pepcid) 20 mg PO Q12H [facility] Last Admin: 02/15/17 08:07 Dose: 20 mg Fentanyl (Sublimaze) Confirm Administered Dose 100 mcg .ROUTE .STK-MED ONE Stop: 02/14/17 10:59 Fentanyl (Sublimaze) Confirm Administered Dose 100 mcg .ROUTE .STK-MED ONE Stop: 02/14/17 12:27 Fentanyl (Sublimaze) 50 mcg IVPUSH Q5M PRN PRN Reason: PAIN Last Admin: 02/14/17 16:49 Dose: 50 mcg Fentanyl (Sublimaze) Confirm Administered Dose 100 mcg .ROUTE .STK-MED ONE Stop: 02/14/17 16:42 Last Admin: 02/14/17 17:30 Dose: Not Given Glycopyrrolate () Confirm Administered Dose 1 mg .ROUTE .STK-MED ONE Stop: 02/14/17 14:42 Lactated Ringer's (Ringers, Lactated) 1,000 mls @ 125 mls/hr IV ASDIRECTED [facility] Stop: 02/14/17 23:00 Last Admin: 02/14/17 10:42 Dose: 125 mls/hr Vancomycin HCl 1 gm/ Sodium (Chloride) 250 mls @ 250 mls/hr IV ONETIME ONE Stop: 02/14/17 11:44 Last Admin: 02/14/17 11:57 Dose: 250 mls/hr Lidocaine HCl (Xylocaine-Mpf 1%) Confirm Administered Dose 4 mls @ as directed .ROUTE .STK-MED ONE Stop: 02/14/17 10:59 Cefazolin Sodium/Dextrose 2 gm (/ Premix) 50 mls @ 100 mls/hr IV Q8H [facility] Stop: 02/15/17 11:29 Last Admin: 02/15/17 11:15 Dose: 100 mls/hr Lidocaine HCl (Xylocaine-Mpf 1%) Confirm Administered Dose 4 mls @ as directed .ROUTE .STK-MED ONE Stop: 02/14/17 12:18 Vancomycin HCl 1 gm/ Sodium (Chloride) 250 mls @ 250 mls/hr IV Q12H [facility] Stop: 02/15/17 12:59 Last Admin: 02/15/17 11:16 Dose: 250 mls/hr Lactated Ringer's (Ringers, Lactated) Confirm Administered Dose 1,000 mls @ as directed .ROUTE .STK-MED ONE Stop: 02/14/17 15:50 Iodine (Iodine 2% Mild Tincture) Confirm Administered Dose 30 ml .ROUTE .STK- MED ONE Stop: 02/14/17 11:56 Last Admin: 02/14/17 15:49 Dose: 30 ml Ketorolac Tromethamine (Toradol) 15 mg IM ONETIME ONE Stop: 02/15/17 12:57 Lidocaine/Sodium Bicarbonate (Buffered Lidocaine 1% In Ns 8.4%) 0.25 ml IV ONETIME PRN PRN Reason: Prior to IV Start Stop: 02/14/17 14:00 Lidocaine/Sodium Bicarbonate (Buffered Lidocaine 1% In Ns 8.4%) 0.25 ml .XX ONETIME PRN PRN Reason: Prior to IV Start Stop: 02/14/17 14:00 Last Admin: 02/14/17 10:42 Dose: 0.25 ml Midazolam HCl (Versed 1 Mg/Ml) Confirm Administered Dose 2 mg .ROUTE .STK-MED ONE Stop: 02/14/17 10:59 Naloxone HCl (Narcan) 0.1 mg IVPUSH Q5M PRN PRN Reason: Oversedation Stop: 02/14/17 11:52 Non-Formulary Medication (Melatonin [Melatonin]) 3 tab PO BEDTIME PRN PRN Reason: Insomnia Non-Formulary Medication (Gabapentin) 1 tab PO DAILY PRN PRN Reason: Pain Non-Formulary Medication (Excedrin Pm) 2 tab PO BEDTIME [facility] Non-Formulary Medication (Diphenhyd/Lidocaine/Nystatin) 1 dose PO QID PRN PRN Reason: DRY MOUTH Ondansetron HCl (Zofran) Confirm Administered Dose 4 mg .ROUTE .STK-MED ONE Stop: 02/14/17 12:17 Oxycodone HCl (Oxycodone) 5 mg PO ONETIME ONE Stop: 02/15/17 12:45 Pantoprazole Sodium (Protonix Iv) 40 mg IVPUSH ONETIME ONE Stop: 02/14/17 18:36 Last Admin: 02/14/17 18:50 Dose: 40 mg Phenylephrine HCl (Phenylephrine In Ns 100 Mcg/Ml) Confirm Administered Dose 1 mg .ROUTE .STK-MED ONE Stop: 02/14/17 14:23 Potassium Chloride (Klor-Con 10) 10 meq PO DAILY PRN PRN Reason: Electrolyte Replacement Propofol (Diprivan 20 Ml) Confirm Administered Dose 200 mg .ROUTE .STK-MED ONE Stop: 02/14/17 12:17 Rocuronium [place] (Zemuron) Confirm Administered Dose 50 mg .ROUTE .STK-MED ONE Stop: 02/14/17 12:17 Ropivacaine (Naropin 0.5%) Confirm Administered Dose 30 ml .ROUTE .STK-MED ONE Stop: 02/14/17 09:47 Scopolamine (Transderm-Scop) 1.5 mg TOP ONETIME ONE Stop: 02/14/17 11:01 Last Admin: 02/14/17 11:02 Dose: 1.5 mg Sodium Chloride (Saline Flush) 10 ml FLUSH ASDIRECTED PRN PRN Reason: Keep Vein Open Stop: 02/14/17 14:00 Tranexamic Acid (Cyklokapron) Confirm Administered Dose 1,000 mg .ROUTE .STK- MED ONE Stop: 02/14/17 10:53 Last Admin: 02/14/17 15:59 Dose: 1,000 mg Vancomycin HCl (Vancomycin) Confirm Administered Dose 1 gm .ROUTE .STK-MED ONE Stop: 02/14/17 10:54 Vancomycin HCl (Pharmacy To Dose - Vancomycin) 0 dose .XX ASDIRECTED PRN PRN Reason: RX TO DOSE POSTOP X 24 HOURS Stop: 02/15/17 13:00 - Exam Wound/Incisions: dressing dry and intact General: alert, cooperative, no acute distress Lungs: Normal respiratory effort Extremities: Other (Active elbow, wrist, hand motion noted. NVS intact for LUE. ) - Problem List Review Problem List Initiated/Reviewed/Updated: Yes - My Orders Last 24 Hours: Active Orders 24 hr Category Date Time Status Cooling Warming Measures [RC] ASDIRECTED Care 02/14/17 16:31 Active Notify Provider [RC] ASDIRECTED Care 02/14/17 16:31 Active Ready for Discharge [RC] PER UNIT ROUTINE Care 02/15/17 13:12 Active Vaccines to be Administered [RC] PER UNIT ROUTINE Care 02/14/17 17:29 Active Vital Signs [RC] Q15M Care 02/14/17 16:31 Inactive Regular Diet [DIET] Diet 02/14/17 Dinner Active Acetaminophen/Butalbital/Caff [Fioricet 325-50-40 MG] Med 02/14/17 17:49 Active 2 tab PO Q6H PRN Aspirin [Ecotrin] Med 02/15/17 09:00 Active 325 mg PO BID Benzocaine/Cetylpyrd/Menthol [Cepacol Sore Throat] Med 02/14/17 23:42 Active 1 lozenge MUCMEM QID PRN Cholecalciferol (Vitamin D3) [Vitamin D3] Med 02/15/17 09:00 Active 2,000 units PO BID Cyclobenzaprine [Flexeril] Med 02/14/17 21:11 Active 10 mg PO BID PRN Furosemide [Lasix] Med 02/14/17 21:11 Active 40 mg PO DAILY PRN Gabapentin [Neurontin] Med 02/15/17 09:00 Active 800 mg PO TID Pantoprazole [ProTONIX] Med 02/15/17 06:00 Active 40 mg PO BIDAC Simvastatin [Zocor] Med 02/15/17 09:00 Active 40 mg PO DAILY Temazepam [Restoril] Med 02/14/17 23:42 Active 15 mg PO BEDTIME PRN Medication Orders Acetaminophen/Butalbital/Caffeine (Fioricet 325-50-40 Mg) 2 tab PO Q6H PRN PRN Reason: Pain Last Admin: 02/15/17 03:03 Dose: 2 tab Admin: 02/14/17 18:49 Dose: 2 tab Aspirin (Ecotrin) 325 mg PO BID [facility] Last Admin: 02/15/17 08:07 Dose: 325 mg Benzocaine/Menthol (Cepacol Sore Throat) 1 lozenge MUCMEM QID PRN PRN Reason: Sore Throat Last Admin: 02/15/17 11:19 Dose: 1 lozenge Admin: 02/15/17 00:20 Dose: 1 lozenge Bisacodyl (Dulcolax) 5 mg PO DAILY PRN PRN Reason: Constipation Cholecalciferol (Vitamin D3) 2,000 units PO BID [facility] Last Admin: 02/15/17 08:07 Dose: 2,000 units Cyclobenzaprine HCl (Flexeril) 10 mg PO BID PRN PRN Reason: muscle spasms Last Admin: 02/15/17 11:16 Dose: 10 mg Admin: 02/14/17 23:26 Dose: 10 mg Docusate Sodium (Colace) 100 mg PO BID PRN PRN Reason: Constipation Last Admin: 02/15/17 08:06 Dose: 100 mg Furosemide (Lasix) 40 mg PO DAILY PRN PRN Reason: Edema Gabapentin (Neurontin) 800 mg PO TID [facility] Last Admin: 02/15/17 08:05 Dose: 800 mg Magnesium Hydroxide (Milk Of Magnesia) 30 ml PO BID PRN PRN Reason: Constipation Morphine Sulfate (Morphine) 2 mg IVPUSH Q2H PRN PRN Reason: Breakthrough Pain Last Admin: 02/15/17 11:16 Dose: 2 mg Admin: 02/15/17 08:11 Dose: 2 mg Admin: 02/15/17 04:26 Dose: 2 mg Admin: 02/15/17 01:43 Dose: 2 mg Ondansetron HCl (Zofran) 4 mg IVPUSH Q6H PRN PRN Reason: Nausea/Vomiting Last Admin: 02/15/17 08:47 Dose: 4 mg Oxycodone/Acetaminophen (Percocet 325-5 Mg) 1 - 2 tab PO Q4H PRN PRN Reason: Pain Last Admin: 02/15/17 08:06 Dose: 2 tab Admin: 02/15/17 04:25 Dose: 2 tab Admin: 02/15/17 00:20 Dose: 2 tab Admin: 02/14/17 20:41 Dose: 2 tab Pantoprazole Sodium (Protonix) 40 mg PO BIDAC [facility] Last Admin: 02/15/17 05:06 Dose: Admin: 02/15/17 04:27 Dose: 40 mg Senna (Senna) 8.6 mg PO BID PRN PRN Reason: Constipation Simvastatin (Zocor) 40 mg PO DAILY [facility] Last Admin: 02/15/17 08:06 Dose: 40 mg Temazepam (Restoril) 15 mg PO BEDTIME PRN PRN Reason: Sleep Last Admin: 02/15/17 00:20 Dose: 15 mg - Assessment Assessment (Free Text/Narrative):: POD#1 - left reverse TSA - Plan Plan (Free Text/Narrative):: 1. Discharge to home today if therapy goals met and pain controlled. 2. Outpatient therapy. 3. Percocet and Flexeril for pain management at home. 4. Hgb 11.0 today. The pt's case was discussed with Dr. Mckinney.
[2017-02-15] MEDS ORDERED: Diphtheria,Pertussis(Acell),Tetanus Vaccine 0.5 ML SDV IM ONE (16:09)
[2017-02-15] MEDS ORDERED: EXCEDRIN PM PO SCH (21:00)
--- NOTE | 2017-02-18 09:22 | PCM.DCSUM1 ---
Discharge Summary - Hospital Course Brief History: Lauren is a 71 yo female who underwent left reverse TSA with Dr. Mckinney on 02-14-2017. The procedure was completed under general anesthesia with regional block. The pt tolerated the procedure well and was admitted to the Medical-Surgical Unit. Medical management was provided by the Hospitalist service. The pt's Hospital course was uneventful. The pt's Hgb on POD#1 was 11.0. On POD#1, 325mg daily was initiated for VTE prophylaxis. SCDs and TEDs were also ordered. A Mepilex dressing was placed at the incision site at the time of surgery and remained clean and dry. The pt participated in P.T. and O.T. and progressed well. On POD#1, the pt was deemed appropriate to discharge to home with her . - Discharge Data Discharge Date: 02/15/17 Discharge Disposition: Home, Self-Care 01 Condition: Good - Patient Summary/Data Consults: Consultations 02/14/17 11:36 Consult to Physician [CONS] Routine OT Evaluation and Treatment [CONS] Routine 02/14/17 11:39 PT Evaluation and Treatment [CONS] Routine - Patient Instructions Diet: Usual Diet as Tolerated Activity: Apply Ice, As Tolerated, Elevate Extremity Activity, Other: No use of the surgical arm. Driving: Do Not Drive Showering/Bathing: May Shower Wound/Incision Care: Keep Operative Site/Wound Site Clean and Dry, Do NOT Change Dressing Notify Provider of: Fever, Increased Pain, Swelling and Redness, Drainage, Nausea and/or Vomiting Other/Special Instructions: Please get up and moving around every hour while awake. This helps to prevent blood clots. Take a 325mg ASPIRIN ONCE DAILY. This also helps to prevent blood clots. The aspirin is being used for blood clot prevention and not for pain management, so please do not miss a dose of the medication. Do the exercises you were taught in the Hospital. Schedule for P.T. Use the pain medication as needed. The medication may cause drowsiness and constipation. Contact your primary care provider for instructions if you are constipated. You may use a stool softener like docusate sodium or Colace 100mg twice daily and/or a laxative like Miralax daily for constipation. Use the ice machine often. Elevate the limb to decrease swelling. Keep the Mepilex dressing in place until follow-up at the Clinic. Notify the Clinic if the dressing is saturated. Wear the SHANA hose during the day and you may remove these at night. Eat a diet high in protein as this well help with healing. Schedule an appointment with your primary care provider for 'routine post-op care'. Call the Clinic with questions or concerns - [phone]. - Discharge Plan Prescriptions/Med Rec: Acetaminophen/oxyCODONE [Percocet 325-5 MG] 1 - 2 tab PO Q4H PRN #60 tablet PRN Reason: Pain Aspirin [Ecotrin] 325 mg PO BID #40 tab.ec Home Medications: Home Meds Cyanocobalamin (Vitamin B-12) [Cyanocobalamin Injection] 1,000 mcg IM ASDIRECTED 12/13/14 [History] Furosemide [Lasix] 40 mg PO DAILY PRN 12/13/14 [History] Gabapentin 800 mg PO BID 12/13/14 [History] Pantoprazole [ProTONIX] 40 mg PO BID 12/13/14 [History] Cholecalciferol (Vitamin D3) [Vitamin D3] 2,000 units PO BID 12/16/14 [History] Aspirin/Acetaminophen/Caffeine [Migraine Relief Caplet] 2 - 3 tab PO Q6HR PRN [History] Clotrimazole [Mycelex] 10 mg PO QID PRN 04/23/16 [History] Diphenhyd/Lidocaine/Nystatin [Magic Mouthwash] 1 dose PO QID PRN 04/23/16 [ History] Potassium Chloride [Klor-Con 10] 10 meq PO DAILY PRN 04/23/16 [History] Excedrin Pm 2 tab PO BEDTIME 09/03/16 [History] Gabapentin 1 tab PO DAILY PRN 09/03/16 [History] Melatonin 3 tab PO BEDTIME PRN 09/03/16 [History] Ondansetron 4 mg PO QID PRN 09/03/16 [History] Cyclobenzaprine [Flexeril] 10 mg PO BEDTIME PRN 02/14/17 [History] Acetaminophen/oxyCODONE [Percocet 325-5 MG] 1 - 2 tab PO Q4H PRN #60 tablet [Rx] Aspirin [Ecotrin] 325 mg PO BID #40 tab.ec 02/15/17 [Rx] Docusate Sodium [Colace] 100 mg PO BID PRN #0 cap 02/15/17 [Rx] Famotidine [Pepcid] 20 mg PO Q12H tablet 02/15/17 [Rx] Ranitidine HCl [Ranitidine] 300 mg PO BID 02/15/17 [History] Patient Handouts: Shoulder Joint Replacement, Shoulder Joint Replacement, Care After, Aspirin, ASA oral tablets Referrals: Morgan Reyes MD [Primary Care Provider] - () Reba Felder PA-C [Physician Shredding Machine Knife Changer] - 02/22/17 1:30 pm (Please Follow up with Reba Felder PA-C on the following dates: 03/01/17 130pm second follow up appointment 02/22/17 at 130PM first follow up appointment ) - Patient Data Vitals - Most Recent: Last Vital Signs Temp 98.8 F 02/15/17 08:00 Pulse 99 02/15/17 12:18 Resp 16 02/15/17 12:18 BP 126/82 02/15/17 12:18 Pulse Ox 94 L 02/15/17 12:18 Weight - Most Recent: 160 lb 9 oz Med Orders - Current: Current Medications Discontinued Medications Acetaminophen/Butalbital/Caffeine (Fioricet 325-50-40 Mg) 2 tab PO Q6H PRN PRN Reason: Pain Last Admin: 02/15/17 03:03 Dose: 2 tab Aspirin (Ecotrin) 325 mg PO BID [place] Last Admin: 02/15/17 08:07 Dose: 325 mg Benzocaine/Menthol (Cepacol Sore Throat) 1 lozenge MUCMEM QID PRN PRN Reason: Sore Throat Last Admin: 02/15/17 11:19 Dose: 1 lozenge Bisacodyl (Dulcolax) 5 mg PO DAILY PRN PRN Reason: Constipation Bupivacaine HCl (Marcaine 0.25%) Confirm Administered Dose 30 ml .ROUTE .STK- MED ONE Stop: 02/14/17 10:54 Last Admin: 02/14/17 15:55 Dose: 30 ml Cefazolin Sodium (Ancef) Confirm Administered Dose 2 gm .ROUTE .STK-MED ONE Stop: 02/14/17 10:54 Last Admin: 02/14/17 15:35 Dose: 2 gm Cholecalciferol (Vitamin D3) units PO BID [facility] Cholecalciferol (Vitamin D3) 2,000 units PO BID [facility] Last Admin: 02/15/17 08:07 Dose: 2,000 units Cyanocobalamin (Vitamin B12) 1,000 mcg IM ASDIRECTED [facility] Cyclobenzaprine HCl (Flexeril) 10 mg PO TID PRN PRN Reason: Spasms Stop: 02/14/17 21:01 Cyclobenzaprine HCl (Flexeril) 10 mg PO BID PRN PRN Reason: muscle spasms Last Admin: 02/15/17 11:16 Dose: 10 mg Diphtheria/Tetanus/Acell Pertussis (Adacel) 0.5 ml IM .ONCE ONE Stop: 02/14/17 17:30 Last Admin: 02/15/17 16:37 Dose: Not Given Diphtheria/Tetanus/Acell Pertussis (Adacel) 0.5 ml IM .ONCE ONE Stop: 02/15/17 16:10 Last Admin: 02/15/17 16:36 Dose: Not Given Docusate Sodium (Colace) 100 mg PO BID PRN PRN Reason: Constipation Last Admin: 02/15/17 08:06 Dose: 100 mg Epinephrine HCl (Adrenalin 1:1000) Confirm Administered Dose 1 mg .ROUTE .STK- MED ONE Stop: 02/14/17 09:46 Famotidine (Pepcid) 20 mg PO Q12H [facility] Last Admin: 02/15/17 08:07 Dose: 20 mg Fentanyl (Sublimaze) Confirm Administered Dose 100 mcg .ROUTE .STK-MED ONE Stop: 02/14/17 10:59 Fentanyl (Sublimaze) Confirm Administered Dose 100 mcg .ROUTE .STK-MED ONE Stop: 02/14/17 12:27 Fentanyl (Sublimaze) 50 mcg IVPUSH Q5M PRN PRN Reason: PAIN Last Admin: 02/14/17 16:49 Dose: 50 mcg Fentanyl (Sublimaze) Confirm Administered Dose 100 mcg .ROUTE .STK-MED ONE Stop: 02/14/17 16:42 Last Admin: 02/14/17 17:30 Dose: Not Given Furosemide (Lasix) 40 mg PO DAILY PRN PRN Reason: Edema Gabapentin (Neurontin) 800 mg PO TID [facility] Last Admin: 02/15/17 15:17 Dose: 800 mg Glycopyrrolate () Confirm Administered Dose 1 mg .ROUTE .STK-MED ONE Stop: 02/14/17 14:42 Lactated Ringer's (Ringers, Lactated) 1,000 mls @ 125 mls/hr IV ASDIRECTED [facility] Stop: 02/14/17 23:00 Last Admin: 02/14/17 10:42 Dose: 125 mls/hr Vancomycin HCl 1 gm/ Sodium (Chloride) 250 mls @ 250 mls/hr IV ONETIME ONE Stop: 02/14/17 11:44 Last Admin: 02/15/17 14:29 Dose: 250 mls/hr Lidocaine HCl (Xylocaine-Mpf 1%) Confirm Administered Dose 4 mls @ as directed .ROUTE .STK-MED ONE Stop: 02/14/17 10:59 Cefazolin Sodium/Dextrose 2 gm (/ Premix) 50 mls @ 100 mls/hr IV Q8H [facility] Stop: 02/15/17 11:29 Last Admin: 02/15/17 11:15 Dose: 100 mls/hr Lidocaine HCl (Xylocaine-Mpf 1%) Confirm Administered Dose 4 mls @ as directed .ROUTE .STK-MED ONE Stop: 02/14/17 12:18 Vancomycin HCl 1 gm/ Sodium (Chloride) 250 mls @ 250 mls/hr IV Q12H [facility] Stop: 02/15/17 12:59 Last Admin: 02/15/17 14:39 Dose: Not Given Lactated Ringer's (Ringers, Lactated) Confirm Administered Dose 1,000 mls @ as directed .ROUTE .STK-MED ONE Stop: 02/14/17 15:50 Iodine (Iodine 2% Mild Tincture) Confirm Administered Dose 30 ml .ROUTE .STK- MED ONE Stop: 02/14/17 11:56 Last Admin: 02/14/17 15:49 Dose: 30 ml Ketorolac Tromethamine (Toradol) 15 mg IM ONETIME ONE Stop: 02/15/17 12:57 Last Admin: 02/15/17 13:29 Dose: 15 mg Lidocaine/Sodium Bicarbonate (Buffered Lidocaine 1% In Ns 8.4%) 0.25 ml IV ONETIME PRN PRN Reason: Prior to IV Start Stop: 02/14/17 14:00 Lidocaine/Sodium Bicarbonate (Buffered Lidocaine 1% In Ns 8.4%) 0.25 ml .XX ONETIME PRN PRN Reason: Prior to IV Start Stop: 02/14/17 14:00 Last Admin: 02/14/17 10:42 Dose: 0.25 ml Magnesium Hydroxide (Milk Of Magnesia) 30 ml PO BID PRN PRN Reason: Constipation Midazolam HCl (Versed 1 Mg/Ml) Confirm Administered Dose 2 mg .ROUTE .STK-MED ONE Stop: 02/14/17 10:59 Morphine Sulfate (Morphine) 2 mg IVPUSH Q2H PRN PRN Reason: Breakthrough Pain Last Admin: 02/15/17 11:16 Dose: 2 mg Naloxone HCl (Narcan) 0.1 mg IVPUSH Q5M PRN PRN Reason: Oversedation Stop: 02/14/17 11:52 Non-Formulary Medication (Melatonin [Melatonin]) 3 tab PO BEDTIME PRN PRN Reason: Insomnia Non-Formulary Medication (Gabapentin) 1 tab PO DAILY PRN PRN Reason: Pain Non-Formulary Medication (Excedrin Pm) 2 tab PO BEDTIME [place] Non-Formulary Medication (Diphenhyd/Lidocaine/Nystatin) 1 dose PO QID PRN PRN Reason: DRY MOUTH Ondansetron HCl (Zofran) 4 mg IVPUSH Q6H PRN PRN Reason: Nausea/Vomiting Last Admin: 02/15/17 15:17 Dose: 4 mg Ondansetron HCl (Zofran) Confirm Administered Dose 4 mg .ROUTE .STK-MED ONE Stop: 02/14/17 12:17 Oxycodone HCl (Oxycodone) 5 mg PO ONETIME ONE Stop: 02/15/17 12:45 Last Admin: 02/15/17 13:28 Dose: 5 mg Oxycodone/Acetaminophen (Percocet 325-5 Mg) 1 - 2 tab PO Q4H PRN PRN Reason: Pain Last Admin: 02/15/17 15:16 Dose: 2 tab Pantoprazole Sodium (Protonix Iv) 40 mg IVPUSH ONETIME ONE Stop: 02/14/17 18:36 Last Admin: 02/14/17 18:50 Dose: 40 mg Pantoprazole Sodium (Protonix) 40 mg PO BIDAC [place] Last Admin: 02/15/17 15:17 Dose: 40 mg Phenylephrine HCl (Phenylephrine In Ns 100 Mcg/Ml) Confirm Administered Dose 1 mg .ROUTE .STK-MED ONE Stop: 02/14/17 14:23 Potassium Chloride (Klor-Con 10) 10 meq PO DAILY PRN PRN Reason: Electrolyte Replacement Propofol (Diprivan 20 Ml) Confirm Administered Dose 200 mg .ROUTE .STK-MED ONE Stop: 02/14/17 12:17 Rocuronium [place] (Zemuron) Confirm Administered Dose 50 mg .ROUTE .STK-MED ONE Stop: 02/14/17 12:17 Ropivacaine (Naropin 0.5%) Confirm Administered Dose 30 ml .ROUTE .STK-MED ONE Stop: 02/14/17 09:47 Scopolamine (Transderm-Scop) 1.5 mg TOP ONETIME ONE Stop: 02/14/17 11:01 Last Admin: 02/14/17 11:02 Dose: 1.5 mg Senna (Senna) 8.6 mg PO BID PRN PRN Reason: Constipation Simvastatin (Zocor) 40 mg PO DAILY [place] Last Admin: 02/15/17 08:06 Dose: 40 mg Sodium Chloride (Saline Flush) 10 ml FLUSH ASDIRECTED PRN PRN Reason: Keep Vein Open Stop: 02/14/17 14:00 Temazepam (Restoril) 15 mg PO BEDTIME PRN PRN Reason: Sleep Last Admin: 02/15/17 00:20 Dose: 15 mg Tranexamic Acid (Cyklokapron) Confirm Administered Dose 1,000 mg .ROUTE .STK- MED ONE Stop: 02/14/17 10:53 Last Admin: 02/14/17 15:59 Dose: 1,000 mg Vancomycin HCl (Vancomycin) Confirm Administered Dose 1 gm .ROUTE .STK-MED ONE Stop: 02/14/17 10:54 Vancomycin HCl (Pharmacy To Dose - Vancomycin) 0 dose .XX ASDIRECTED PRN PRN Reason: RX TO DOSE POSTOP X 24 HOURS Stop: 02/15/17 13:00 *Q Meaningful Use (DIS) - VTE *Q VTE Criteria *Q: - Stroke *Q Stroke Criteria *Q: - AMI *Q AMI Criteria *Q:
--- NOTE | 2017-02-21 08:57 | PCM.OPNOTE ---
- General Post-Op/Procedure Note Date of Surgery/Procedure: 02/14/17 Operative Procedure(s): left reverse total shoulder arthroplasty Pre Op Diagnosis: left shoulder rotator cuff tear arthropathy Post-Op Diagnosis: Same Anesthesia Technique: General ET Tube, Regional Block Primary Surgeon: Carlos Mckinney Anesthesia Provider: Josh Last Neurosurgery Spine Physician: Reba Felder Neurosurgery Spine Physician: Li Marino EBL in mLs: 320 Complications: None Condition: Good
--- NOTE | 2017-02-21 10:15 | OR ---
DATE OF OPERATION: 02/14/2017 SURGEON: Carlos Mckinney MD OPERATION PERFORMED: Left reverse total shoulder arthroplasty. PREOPERATIVE DIAGNOSIS: Left shoulder rotator cuff tear arthropathy. POSTOPERATIVE DIAGNOSIS: Left shoulder rotator cuff tear arthropathy. ANESTHESIA: General endotracheal intubation with regional interscalene block. ANESTHESIA PROVIDER: Josh Lsat CRNA ASSISTANTS: Reba Felder PA-C, PC and Li Marino LPN. ESTIMATED BLOOD LOSS: 320 mL. COMPLICATIONS: None. CONDITION: Stable. IMPLANTS: 1. Arthrex size 5 humeral stem. 2. Arthrex 36 +4 mm glenosphere. 3. A 3 mm polyethylene liner. DESCRIPTION OF PROCEDURE: The patient was identified in the preop holding area. Proper site marked and identified by the surgeon. The patient was taken back to the operative theater where after adequate anesthesia, the patient was placed supine on radiolucent table. The left shoulder was then sterilely prepped and draped in the usual sterile fashion. OR time-out was performed. The patient received 2 g IV Ancef. At this time, the bed was placed in a reverse Trendelenburg position. Incision was made for the deltopectoral approach. This was taken down to the interval. The cephalic vein was retracted laterally. The subdeltoid and subacromial spaces were then released of any adhesions. The clavipectoral fascia was incised. The anterior humeral circumflex vessels were then ligated using a stick tie 0 Vicryl. Biceps tendon was identified and a subpectoral biceps tenodesis was performed. A tenotomy of the proximal portion was then done and it was taken all the way through the rotator interval. After the glenoid and the biceps tendon was released, takedown of the subscapularis was done, although was shown to be significantly partially torn already. At this time, the humeral head was dislocated, guide pin was placed down the center of the shaft and starter awl was placed. Neck cut was then completed in 30 degrees of retroversion. A protector was then placed over the humeral cut and attention was turned to the glenoid. Circumferentially, the labrum was removed as well as what remained of the biceps tendon. Next, the guidepin was placed in a center- center position. The central hole was drilled and then the small reamer was applied and the glenoid was reamed. It was found to be in adequate position with no superior reaming or anteversion of the reaming. At this time, the glenoid baseplate was impacted into proper position. The superior and inferior locking screws were drilled as well as the central compression screw was first placed, then the inferior, then the superior locking screw. They were all found to have adequate fixation. At this time, attention was turned to the humerus. The humerus was broached with a size 6 broach, but it was found to not be rotationally stable and was sitting proud. At this time, a size 5 broach was found to be able to sit completely for the 135 degree neck angle cut. Secondary to this the mono block was just had, I had to freehand the reamer on the humeral side. Next, the size 5 monoblock was opened. It was found to be not rotationally or vertically stable, so at this time we cemented to the size 5 stem in 30 degrees of retroversion. At this time, it was held in place for 12 minutes while the cement cured. Once this was done, the +3 polyethylene liner was trialed. This was found to have adequate stabilization throughout her range of motion with no signs of instability. This was then dislocated and the 3-mm polyethylene was impacted into place. The shoulder was relocated. C-arm fluoroscopy showed all of components in adequate position and well seated. At this time, 3 L pulse lavage irrigation with Ancef along with 1 L dilute Betadine solution was irrigated through the shoulder. A #2 FiberWire was used for closure of the deltopectoral interval, 2-0 Vicryl was used subcutaneously and Prineo was used for the skin. The patient was placed in a sterile soft dressing and was sent to the PACU in stable condition. MMODAL /[id number]
== END 2017-02-15 16:46 | disposition home or self-care (01) | DRG 483 ==
LOC: JD.MS 10:11
PROVIDERS: ADMIT Orthopaedic Surgery; ATTEND Orthopaedic Surgery
PROC: 0RRK00Z Replacement of Left Shoulder Joint with Reverse Ball and Socket Synthetic Substitute, Open Approach (ICD-10-PCS; principal; 2017-02-14)
DX: M19.019 Primary osteoarthritis, unspecified shoulder (principal); R12 Heartburn; R11.2 Nausea with vomiting, unspecified; R51 Headache; I10 Essential (primary) hypertension; E78.5 Hyperlipidemia, unspecified; K27.9 Peptic ulcer, site unspecified, unspecified as acute or chronic, without hemorrhage or perforation; K21.9 Gastro-esophageal reflux disease without esophagitis; M81.0 Age-related osteoporosis without current pathological fracture; M79.1 Myalgia; E53.8 Deficiency of other specified B group vitamins; E55.9 Vitamin D deficiency, unspecified; D50.9 Iron deficiency anemia, unspecified; G47.00 Insomnia, unspecified; Z88.0 Allergy status to penicillin; Z88.8 Allergy status to other drugs, medicaments and biological substances; Z79.01 Long term (current) use of anticoagulants; Z79.82 Long term (current) use of aspirin; Z79.899 Other long term (current) drug therapy; E66.9 Obesity, unspecified; Z68.30 Body mass index [BMI] 30.0-30.9, adult; Z96.643 Presence of artificial hip joint, bilateral; Z96.651 Presence of right artificial knee joint; G62.9 Polyneuropathy, unspecified; M25.512 Pain in left shoulder
CPT/HCPCS: 01638; 36415; 64415; 73020-26-LT; 73020-LT; 76000; 76000-26; 80053; 85025; 87641; 97110-GP; 97116-GP; 97162-GP; 97166-GO; 97530-GP; 97535-GO; A9270; A9270-GY; C1713; C1776; C9113; J0171; J0690; J1885; J2250; J2270; J2405; J2704; J2795; J3010; J3370; J3490; J7050; J7120

== ENCOUNTER 2019-09-10 10:22 | Inpatient (IN) | payer MEDICARE, BC ==
[~2019-09-10 10:22] MED LIST changes: +Acetaminophen 325 MG Tab PO SCH; +Bisacodyl 5 MG Tab PO PRN; -EPINEPHrine 1 MG/ML SDV ONE; -Lactated Ringers 1,000 ML IV SCH; +Lactated Ringers 1,000 ML ONE; +Lidocaine 1% 2 ML ONE; +Lidocaine 1% 4 ML ONE; +Lidocaine 1%/Sod Bicarbonate in NS 8.4% 1 ML Syringe IDERM PRN; -Lidocaine 1%/Sod Bicarbonate in NS 8.4% 1 ML Syringe IV PRN; +Magnesium Hydroxide 400 MG/5 ML Susp 30 ML Cup PO PRN; +Morphine 2 MG/ML Syringe IVPUSH PRN; +Naloxone 0.4 MG/ML SDV IVPUSH PRN; +Ondansetron 4 MG/2 ML SDV IVPUSH PRN; +Ondansetron 4 MG/2 ML SDV ONE; +Pregabalin 25 MG Cap PO SCH; +Propofol 200 MG/20 ML SDV ONE; +Scopolamine 1.5 MG Transdermal Patch TOP SCH; +Sennosides 8.6 MG Tab PO PRN; +fentaNYL 100 MCG/2 ML SDV ONE; +oxyCODONE ER 10 MG TAB.ER PO SCH
--- NOTE | 2019-09-10 10:45 | PCM.CONS ---
H&P History of Present Illness - General Date of Service: 09/10/19 Admit Problem/Dx: Admission Diagnosis/Problem Admission Diagnosis/Problem Osteoarthritis of knee Source of Information: Patient, Provider, RN, RN Notes Reviewed History Limitations: Reports: No Limitations - History of Present Illness Initial Comments - Free Text/Narative: Lauren Carrero is a 73 yo [address] patient of Dr. Mckinney who is post- operative day 0 of left TKA. Hospital medicine was consulted for post-operative medical care of the following listed medical conditions. At this time she is lying in bed. Pain is not well controlled and primary team and anesthesia are working on this. She denies any chest pain, shortness of breath, palpitations, nausea, or vomiting. She carries a history of: Insomnia, HTN, Dysphagia, Vitamin D deficiency, Ataxia, Aortic heart murmur, C-spine stenosis, Hx/o Positive MRSA culture, APOLONIA, Adjustment disorder, Polymyalgia rheumatica, Osteoporosis, Seborrheic keratosis, History of Billroth I procedure in 1970s, hx /o partial gastrectomy, Chronic low back pain, HLD, B12 deficiency, Bilateral tinnitus, Hiatal hernia, Lumbar post-laminectomy syndrome, Chronic pain at multiple sites, S/P TSA, S/P GARY. She was never a smoker. She is a full code. Her primary care provider is Dr. Marie. Left knee Pain Score (Numeric/FACES): 8 - Related Data Allergies/Adverse Reactions: Allergies Allergy/AdvReac Type Severity Reaction Status Date / Time lorazepam [From Ativan] Allergy Agitation Verified 09/07/19 14:31 meloxicam AdvReac GI UPSET Verified 09/07/19 14:31 Penicillins AdvReac Rash Verified 09/07/19 14:31 Home Medications: Home Meds Cyanocobalamin (Vitamin B-12) [Cyanocobalamin Injection] 1,000 mcg IM Q30D 12/13 [History] Gabapentin 800 mg PO TID 12/13/14 [History] Pantoprazole [ProTONIX] 40 mg PO BID 12/13/14 [History] Cholecalciferol (Vitamin D3) [Vitamin D3] 2,000 units PO BID 12/16/14 [History] Ondansetron 4 mg PO QID PRN 09/03/16 [History] Estradiol Valerate 20 mg IM Q30D 09/07/19 [History] Menthol [Biofreeze] 1 dose TOP QID PRN 09/07/19 [History] Sucralfate [Carafate] 1 gm PO QID 09/07/19 [History] hydroCHLOROthiazide [Hydrochlorothiazide] 12.5 mg PO DAILY 09/07/19 [History] lisinopriL [Lisinopril] 40 mg PO DAILY 09/07/19 [History] methocarbamoL [Methocarbamol] 500 mg PO QID PRN 09/07/19 [History] quiNINE sulfate [Quinine Sulfate] 324 mg PO BEDTIME 09/07/19 [History] traMADol HCl [Tramadol HCl] 100 mg PO TID PRN 09/07/19 [History] Past Medical History HEENT History: Reports: Impaired Vision Other HEENT History: Uses reading glasses, full dentures Cardiovascular History: Reports: Heart Murmur, High Cholesterol, Hypertension, Other (See Below) Other Cardiovascular History: lower extremity edema. Takes PRN lasix and potassium. Respiratory History: Reports: SOB Gastrointestinal History: Reports: GERD, PUD, Other (See Below) Other Gastrointestinal History: dysphagia, hematochezia Genitourinary History: Reports: UTI, Recurrent [employer]PERATOR History: Reports: Polycystic Ovaries, Other OB/BYN History: x 2 Musculoskeletal History: Reports: Arthritis, Back Pain, Chronic, Osteoarthritis , Other (See Below) Other Musculoskeletal History: Right ankle pain, foot arthritis, bilateral hip arthritis, bilateral carpal tunnel syndrome, neuroforaminal stenosis, facet joint degenerative arthritis, R shoulder impingment syndrome, muscle cramps, myofasical pain, polymyalgia rheumatica, cervical spine stenosis, lower extremity weakness Neurological History: Reports: Other (See Below) Other Neuro History: ataxia, frequent falls, polyneuropathy, c spine stenosis, neck pain Psychiatric History: Reports: Panic Attack, Other (See Below) Other Psychiatric History: insomnia Endocrine/Metabolic History: Reports: Obesity/BMI 30+, Vitamin D Deficiency Hematologic History: Reports: Anemia, Iron Deficiency, Other (See Below) Other Hematologic History: multiple contusions, vitamin b 12 deficiency Immunologic History: Reports: Other (See Below) Other Immunologic History: polymyalgia rheumatica Oncologic (Cancer) History: Reports: Basal Cell Carcinoma Dermatologic History: Reports: Other (See Below) Other Dermatologic History: seborrheic keratosis - Infectious Disease History Infectious Disease History: Reports: MRSA - Past Surgical History HEENT Surgical History: Reports: Eye Surgery, Tonsillectomy Cardiovascular Surgical History: Reports: None Respiratory Surgical History: Reports: None GI Surgical History: Reports: Colonoscopy, EGD, Hernia Repair/Other Other GI Surgeries/Procedures: partial gastrectomy Female Surgical History: Reports: Hysterectomy Male Surgical History: Reports: None Endocrine Surgical History: Reports: None Neurological Surgical History: Reports: Other (See Below) Other Neurological Surgeries/Procedures: posts in back. Musculoskeletal Surgical History: Reports: Carpal Tunnel, Hip Replacement, Knee Replacement, Shoulder Replacement, Other (See Below) Other Musculoskeletal Surgeries/Procedures:: bilateral carpal tunnel release, left foot bunionectomy, right knee replacement, bilateral hip replacments Oncologic Surgical History: Reports: None Dermatological Surgical History: Reports: None, Skin Biopsy Social & Family History - Family History Family Medical History: Noncontributory - Tobacco Use Smoking Status *Q: Never Smoker - Caffeine Use Caffeine Use: Reports: Coffee, Soda Caffeine Use Comment: 4 cans diet pepsi daily - Recreational Drug Use Recreational Drug Use: No Drug Use in Last 12 Months: No H&P Review of Systems - Review of Systems: Review Of Systems: See Below General: Reports: No Symptoms. Denies: Fever, Chills HEENT: Reports: No Symptoms. Denies: Headaches, Sore Throat Pulmonary: Reports: No Symptoms. Denies: Shortness of Breath, Wheezing, Pleuritic Chest Pain, Cough, Sputum Cardiovascular: Reports: No Symptoms. Denies: Chest Pain, Palpitations, Dyspnea on Exertion Gastrointestinal: Reports: No Symptoms. Denies: Abdominal Pain, Constipation, Diarrhea, Nausea, Vomiting Genitourinary: Reports: No Symptoms. Denies: Dysuria Musculoskeletal: Reports: Shoulder Pain (chronic ), Back Pain (severe - chronic) , Leg Pain (left) Skin: Reports: No Symptoms. Denies: Cyanosis Psychiatric: Reports: No Symptoms. Denies: Confusion Neurological: Reports: Difficulty Walking, Gait Disturbance Hematologic/Lymphatic: Reports: No Symptoms Immunologic: Reports: No Symptoms Exam - Exam Exam: See Below - Exam Quality Assessment: Supplemental Oxygen, DVT Prophylaxis. No: Urinary Catheter General: Alert, Oriented, Cooperative, Moderate Distress (pain in leg/back) HEENT: Conjunctiva Clear, EACs Clear, EOMI, Hearing Intact, Mucosa Moist & [place] , Nares Patent, Posterior Pharynx Clear, PERRLA Neck: Supple, Trachea Midline Lungs: Clear to Auscultation, Normal Respiratory Effort Cardiovascular: Regular Rate, Regular Rhythm, Systolic Murmur GI/Abdominal Exam: Normal Bowel Sounds, Soft, Non-Tender, No Distention (Female) Exam: Deferred Rectal (Female) Exam: Deferred Extremities: Normal Capillary Refill, Leg Pain (significant ), Limited Range of Motion, Other (Bandage in place on left leg. Bandage is dry and intact. Cooling pack in place. ) Peripheral Pulses: 3+: Radial (L), Radial (R), Dorsalis Pedis (L), Dorsalis Pedis (R) Skin: Warm, Dry, Intact Neurological: Cranial Nerves Intact (Grossly ) Neuro Extensive - Mental Status: Alert, Oriented x3 Consult PN Assessment/Plan POD#: 0 Procedures: Procedures AIRWAY INHALATION TREATMENT (04/26/16) BLOOD CULTURE FOR BACTERIA (12/16/14) BLOOD TRANSFUSION SERVICE (04/26/16) BLOOD TYPING SEROLOGIC ABO (09/06/16) BLOOD TYPING SEROLOGIC RH(D) (09/06/16) C-REACTIVE PROTEIN (04/26/16) CHEST WALL MANIPULATION (04/26/16) CHEST WALL MANIPULATION (04/26/16) CHEST X-RAY 1 VIEW FRONTAL (12/16/14) CHEST X-RAY 2VW FRONTAL&LATL (04/26/16) COMPATIBILITY TEST ANTIGLOB (04/26/16) COMPLETE CBC AUTOMATED (04/26/16) COMPLETE CBC W/AUTO DIFF WBC (02/14/17) COMPREHEN METABOLIC PANEL (02/14/17) DRAIN/INJ JOINT/BURSA W/O US (03/30/16) DXA BONE DENSITY AXIAL (04/22/16) ELECTROCARDIOGRAM TRACING (12/16/14) ELECTROLYTE PANEL (09/06/16) EMERGENCY DEPT VISIT (06/18/18) EVALUATE PT USE OF INHALER (04/26/16) EXTREMITY STUDY (04/26/16) FLUOROSCOPY <1 HR PHYS/QHP (02/14/17) GAIT TRAINING THERAPY (02/14/17) HEMATOCRIT (04/26/16) HEMOGLOBIN (04/26/16) MEASURE BLOOD OXYGEN LEVEL (04/26/16) MEASURE BLOOD OXYGEN LEVEL (12/16/14) METABOLIC PANEL TOTAL CA (09/06/16) MICROBE SUSCEPTIBLE SHAMA (12/16/14) MR-STAPH DNA AMP PROBE (02/14/17) NEEDLE LOCALIZATION BY XRAY (03/21/15) OT EVAL LOW COMPLEX 30 MIN (09/06/16) OT EVAL MOD COMPLEX 45 MIN (02/14/17) OT EVALUATION (04/26/16) PROTHROMBIN TIME (09/06/16) PT EVAL LOW COMPLEX 20 MIN (09/06/16) PT EVAL MOD COMPLEX 30 MIN (02/14/17) PT EVALUATION (04/26/16) RBC ANTIBODY SCREEN (09/06/16) ROUTINE VENIPUNCTURE (02/14/17) SELF CARE MNGMENT TRAINING (02/14/17) THER/PROPH/DIAG INJ SC/IM (06/18/18) THERAPEUTIC ACTIVITIES (02/14/17) THERAPEUTIC EXERCISES (02/14/17) URINALYSIS AUTO W/SCOPE (04/26/16) URINE BACTERIA CULTURE (12/16/14) URINE CULTURE/COLONY COUNT (12/16/14) X-RAY EXAM HIP UNI 1 VIEW (09/06/16) X-RAY EXAM OF SHOULDER (06/18/18) X-RAY EXAM OF SHOULDER (02/14/17) (1) S/P total knee arthroplasty SNOMED Code(s): 9224760704376, 791916238, 8009276777639 Code(s): Z96.659 - PRESENCE OF UNSPECIFIED ARTIFICIAL KNEE JOINT Priority: High Current Visit: Yes Qualifiers: Laterality: left Qualified Code(s): Z96.652 - Presence of left artificial knee joint (2) Insomnia SNOMED Code(s): 821601288 Code(s): G47.00 - INSOMNIA, UNSPECIFIED Priority: Low Current Visit: No Qualifiers: Insomnia type: unspecified Qualified Code(s): G47.00 - Insomnia, unspecified (3) Dysphagia SNOMED Code(s): 52930599, 903909942 Code(s): R13.10 - DYSPHAGIA, UNSPECIFIED Priority: Medium Current Visit: No Qualifiers: Dysphagia type: unspecified Qualified Code(s): R13.10 - Dysphagia, unspecified (4) Vitamin D deficiency SNOMED Code(s): 54433763 Code(s): E55.9 - VITAMIN D DEFICIENCY, UNSPECIFIED Priority: Low Current Visit: No (5) Ataxia SNOMED Code(s): 13535223 Code(s): R27.0 - ATAXIA, UNSPECIFIED Priority: Low Current Visit: No (6) Aortic heart murmur SNOMED Code(s): 261442130 Code(s): I35.8 - OTHER NONRHEUMATIC AORTIC VALVE DISORDERS Priority: Low Current Visit: No (7) Cervical spinal stenosis Priority: Low Current Visit: No (8) Positive nasal culture for methicillin resistant Staphylococcus aureus SNOMED Code(s): 575199553, 009239114 Code(s): Z22.322 - CARRIER OR SUSPECTED CARRIER OF METHICILLIN RESIS STAPH Priority: Medium Current Visit: No (9) APOLONIA (iron deficiency anemia) SNOMED Code(s): 63774257 Code(s): D50.9 - IRON DEFICIENCY ANEMIA, UNSPECIFIED Priority: Low Current Visit: No Qualifiers: Iron deficiency anemia type: unspecified iron deficiency Qualified Code(s) : D50.9 - Iron deficiency anemia, unspecified (10) Adjustment disorder SNOMED Code(s): 34871361 Code(s): F43.20 - ADJUSTMENT DISORDER, UNSPECIFIED Priority: Low Current Visit: No Qualifiers: Adjustment disorder type: unspecified type Qualified Code(s): F43.20 - Adjustment disorder, unspecified (11) Seborrheic keratoses SNOMED Code(s): 445233103 Code(s): L82.1 - OTHER SEBORRHEIC KERATOSIS Priority: Low Current Visit: No (12) History of Billroth I operation SNOMED Code(s): 33022237045196 Code(s): Z98.890 - OTHER SPECIFIED POSTPROCEDURAL STATES Priority: Low Current Visit: No (13) History of partial gastrectomy SNOMED Code(s): 343311524860236 Code(s): Z90.3 - ACQUIRED ABSENCE OF STOMACH [PART OF] Priority: Low Current Visit: No (14) B12 deficiency SNOMED Code(s): 818226931 Code(s): E53.8 - DEFICIENCY OF OTHER SPECIFIED B GROUP VITAMINS Priority: Low Current Visit: No (15) Bilateral tinnitus SNOMED Code(s): 8478728079831 Code(s): H93.13 - TINNITUS, BILATERAL Priority: Low Current Visit: No (16) Hiatal hernia SNOMED Code(s): 31023916 Code(s): K44.9 - DIAPHRAGMATIC HERNIA WITHOUT OBSTRUCTION OR GANGRENE Priority: Low Current Visit: No (17) Lumbar post-laminectomy syndrome Priority: Medium Current Visit: No (18) Chronic pain of multiple sites SNOMED Code(s): 74741870 Code(s): R52 - PAIN, UNSPECIFIED; G89.29 - OTHER CHRONIC PAIN Priority: Medium Current Visit: No (19) Osteoarthritis SNOMED Code(s): 284426082 Code(s): M19.90 - UNSPECIFIED OSTEOARTHRITIS, UNSPECIFIED SITE Priority: High Current Visit: Yes Qualifiers: Osteoarthritis location: knee Osteoarthritis type: primary Laterality: left Qualified Code(s): M17.12 - Unilateral primary osteoarthritis, left knee (20) S/P total hip arthroplasty SNOMED Code(s): 922545268324, 734595256077 Code(s): Z96.649 - PRESENCE OF UNSPECIFIED ARTIFICIAL HIP JOINT Priority: Low Current Visit: No Qualifiers: Laterality: bilateral Qualified Code(s): Z96.643 - Presence of artificial hip joint, bilateral (21) Status post total shoulder arthroplasty SNOMED Code(s): 612469285, 026277744 Code(s): Z96.619 - PRESENCE OF UNSPECIFIED ARTIFICIAL SHOULDER JOINT Priority: Low Current Visit: No Qualifiers: Laterality: unspecified laterality Qualified Code(s): Z96.619 - Presence of unspecified artificial shoulder joint (22) Chronic low back pain SNOMED Code(s): 658650320 Code(s): M54.5 - LOW BACK PAIN; G89.29 - OTHER CHRONIC PAIN Priority: Medium Current Visit: No Qualifiers: Back pain laterality: unspecified Sciatica laterality: sciatica laterality unspecified (23) Hyperlipidemia SNOMED Code(s): 94129374 Code(s): E78.5 - HYPERLIPIDEMIA, UNSPECIFIED Priority: Low Current Visit : No Qualifiers: Hyperlipidemia type: unspecified Qualified Code(s): E78.5 - Hyperlipidemia , unspecified (24) Hypertension SNOMED Code(s): 33300675 Code(s): I10 - ESSENTIAL (PRIMARY) HYPERTENSION Priority: Low Current Visit: No Qualifiers: Hypertension type: essential hypertension Qualified Code(s): I10 - Essential (primary) hypertension (25) Polymyalgia rheumatica SNOMED Code(s): 36606184 Code(s): M35.3 - POLYMYALGIA RHEUMATICA Priority: Low Current Visit: No Problem List Initiated/Reviewed/Updated: Yes Plan: I/P: Acute: S/P left total knee arthroplasty - post-operative day 0 -DVT prophylaxis and pain management per primary care team -PT/OT -IS/RT -Monitor oxygen saturation -Titrate oxygen as needed -Home medications reviewed -Vital signs stable -Monitor labs -Pre-operative Hgb was 12.7 -Pre-operative GFR was 72 -Pre-operative 12-lead EKG showed Sinus rhythm at 73 BPM. 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 Her PCP is Dr. Marie Thank you for allowing us to participate in the care of this patient!! Requesting Provider: Dr. Mckinney Date Consult Requested: 09/10/19 Patient History Reviewed: Yes Admission H&P Reviewed: Yes Notified Requestor: Yes
[2019-09-10] MEDS: Lactated Ringers 1,000 ML IV SCH ×2 (11:00→14:52)
[2019-09-10] MEDS ORDERED: Rocuronium 50 MG/5 ML Vial ONE (11:37)
[2019-09-10] MEDS ORDERED: Dexamethasone 4 MG/ML 5 ML MDV ONE (11:39)
[2019-09-10] MEDS ORDERED: ceFAZolin 1 GM Vial ONE (11:39)
[2019-09-10] MEDS ORDERED: Famotidine 20 MG/2 ML SDV ONE (11:44)
[2019-09-10] MEDS ORDERED: fentaNYL 100 MCG/2 ML SDV ONE ×3 (12:12→13:51)
[2019-09-10] MEDS ORDERED: Propofol 200 MG/20 ML SDV ONE ×3 (12:22→12:57)
[2019-09-10] MEDS ORDERED: Ketamine 500 mg/10 ML MDV ONE (12:24)
[2019-09-10] MEDS: Bupivacaine 0.25% 10 ML SDV ONE ×2 (12:51→13:36)
[2019-09-10] MEDS: ceFAZolin 1 GM Vial ONE ×2 (12:51→13:29)
[2019-09-10] MEDS: Iodine/Sodium Iodide 2% Tincture 30 ML Bottle ONE ×2 (12:52→13:25)
[2019-09-10] MEDS ORDERED: HYDROmorphone 0.5 MG/0.5 ML Syringe ONE ×3 (12:52→13:48)
[2019-09-10] MEDS: Morphine 8 MG, EPINEPHrine 0.3 MG, Cefuroxime 750 MG, Ketorolac 30 MG, Sodium Chloride ... PRN ×10 (12:53→13:35)
[2019-09-10] MEDS: Vancomycin 1 GM SDV ONE ×2 (12:54→13:37)
[2019-09-10] MEDS ORDERED: Midazolam 1 MG/ML 2 ML SDV ONE (13:01)
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
[2019-09-10] MEDS ORDERED: Ondansetron 4 MG/2 ML SDV IVPUSH PRN (13:32)
[2019-09-10] MEDS ORDERED: Ketorolac 15 MG/ML SDV ONE (13:47)
[2019-09-10] MEDS ORDERED: Neostigmine Methylsulfate 1 MG/ML 5 ML Syringe ONE (13:52)
[2019-09-10] MEDS ORDERED: Labetalol 100 MG/20 ML MDV ONE (13:53)
[2019-09-10] MEDS ORDERED: MENTHOL TOP PRN (14:20)
[2019-09-10] MEDS: HYDROmorphone 0.5 MG/0.5 ML Syringe IVPUSH PRN ×2 (14:23→14:53)
--- NOTE | 2019-09-10 14:27 | PCM.POSTAN ---
POST ANESTHESIA ASSESSMENT - MENTAL STATUS Mental Status: Other (Drowsy) - VITAL SIGNS Vital Signs: Last Vital Signs Temp 36.8 C 09/10/19 14:14 Pulse 84 09/10/19 14:14 Resp 20 09/10/19 14:14 BP 153/89 H 09/10/19 14:14 Pulse Ox 94 L 09/10/19 14:14 - RESPIRATORY Respiratory Status: Respiratory Rate WNL, Airway Patent, O2 Saturation Stable - CARDIOVASCULAR CV Status: Pulse Rate WNL, Blood Pressure Stable - GASTROINTESTINAL GI Status: No Symptoms - PAIN Pain Score: 0 - POST OP HYDRATION Hydration Status: Adequate & Stable
[2019-09-10] MEDS ORDERED: Cyanocobalamin (Vitamin B12) 1,000 MCG/ML SDV IM SCH (14:30)
--- NOTE | 2019-09-10 14:30 | PCM.SN ---
- Free Text/Narrative Note: Left selective femoral nerve block at the adductor canal for post-procedure pain control Time Out: 1150 Start: 1155 End: 1159 Chart reviewed. Consent signed. Questions answered. Appropriate monitors applied. Time out performed. Left mid-shaft femur evaluated with ultrasound. Scanning medially femur, I was able to identify the femoral artery in the adductor canal. The saphenous nerve was lateral to the artery. The skin was prepped lateral to the ultrasound probe with chlorahexadine. The 21ga 4 insulated block needle was inserted under direct ultrasound guidance into the adductor canal. 20mL of 0.5% ropivacaine with 1:200,000 epinephrine was injected cirmcumferentially about the nerve with intermittent negative aspiration every 5mL. Patient tolerated the procedure well. No complications noted. See pictures on progress note and vital signs on nurses notes. Block completed postoperatively. Joanna Herrera CRNA
[2019-09-10] MEDS: fentaNYL 100 MCG/2 ML SDV IVPUSH PRN ×2 (14:32→14:41)
[2019-09-10] MEDS: Acetaminophen/oxyCODONE 325-5 MG Tab PO PRN ×3 (14:38→23:05)
--- NOTE | 2019-09-10 15:03 | CR ---
Left knee: AP and crosstable lateral views of the left knee were obtained. Comparison: No prior left knee exam. Findings: Knee prosthesis is seen. Components are aligned. Soft tissue air noted from the surgical procedure. No underlying bony abnormality is appreciated. Impression: 1. Satisfactory radiographic appearance of recently placed left knee prosthesis. Diagnostic code #2 This report was dictated in [place] [employer] Time
[2019-09-10] MEDS: Sucralfate 1 GM Tab PO SCH ×2 (15:59→21:54)
[2019-09-10] MEDS: Gabapentin 600 MG Tab PO SCH ×2 (15:59→21:54)
[2019-09-10] MEDS: Gabapentin 100 MG Cap PO SCH ×2 (15:59→21:53)
[2019-09-10] MEDS: Cyclobenzaprine 10 MG Tab PO PRN (16:10)
[2019-09-10] MEDS ORDERED: Famotidine 20 MG Tab PO SCH (21:00)
[2019-09-10] MEDS ORDERED: QUININE SULFATE 324 MG PO SCH (21:00)
[2019-09-10] MEDS: ceFAZolin 2 GM in Premix Bag 1 BAG IV SCH (21:47)
[2019-09-10] MEDS: Ketorolac 15 MG/ML SDV IVPUSH PRN (21:51)
[2019-09-10] MEDS: Docusate Sodium 100 MG Cap PO SCH (21:53)
[2019-09-10] MEDS: Pantoprazole 40 MG Tab.CR PO SCH (21:53)
[2019-09-10] MEDS: Cholecalciferol (Vitamin D3) 25 MCG Tab PO SCH (21:54)
[2019-09-11] MEDS: Cyclobenzaprine 10 MG Tab PO PRN ×2 (00:12→11:00)
[2019-09-11] MEDS: ceFAZolin 2 GM in Premix Bag 1 BAG IV SCH ×3 (04:10→20:54)
[2019-09-11] MEDS: Ketorolac 15 MG/ML SDV IVPUSH PRN (04:11)
[2019-09-11] MEDS: Acetaminophen/oxyCODONE 325-5 MG Tab PO PRN ×2 (04:12→08:38)
--- NOTE | 2019-09-11 06:50 | PCM.CONSN ---
- General Info Date of Service: 09/11/19 Admission Dx/Problem (Free Text): Admission Diagnosis/Problem Admission Diagnosis/Problem Osteoarthritis of knee Functional Status: Reports: Pain Controlled, Tolerating Diet, Ambulating, Urinating, Incentive Spirometry. Denies: New Symptoms - Review of Systems General: Reports: No Symptoms. Denies: Fever, Chills HEENT: Reports: No Symptoms. Denies: Headaches, Sore Throat Pulmonary: Reports: No Symptoms. Denies: Shortness of Breath, Pleuritic Chest Pain, Cough, Sputum, Wheezing Cardiovascular: Reports: No Symptoms. Denies: Chest Pain, Palpitations, Dyspnea on Exertion, Lightheadedness Gastrointestinal: Reports: No Symptoms. Denies: Abdominal Pain, Constipation, Diarrhea, Nausea, Vomiting Genitourinary: Reports: No Symptoms. Denies: Pain Musculoskeletal: Reports: Leg Pain (left). Denies: Neck Pain, Back Pain Skin: Reports: No Symptoms. Denies: Cyanosis Neurological: Reports: Difficulty Walking, Gait Disturbance. Denies: Confusion Psychiatric: Reports: No Symptoms - Patient Data Vitals - Most Recent: Last Vital Signs Temp 98.1 F 09/11/19 00:14 Pulse 70 09/11/19 00:14 Resp 20 09/11/19 00:14 BP 134/91 H 09/11/19 00:14 Pulse Ox 95 09/11/19 00:14 Weight - Most Recent: 162 lb I&O - Last 24 Hours: Intake & Output 09/10/19 09/10/19 09/11/19 14:59 22:59 06:59 Intake Total 1690 Balance 1690 Lab Results Last 24 Hours: Laboratory Results - last 24 hr 09/11/19 09/11/19 Range/Units 05:00 05:00 WBC 12.58 H (3.98-10.04) K/mm3 RBC 3.34 L (3.98-5.22) M/mm3 Hgb 10.5 L (11.2-15.7) gm/dl Hct 33.0 L (34.1-44.9) % MCV 98.8 H D (79.4-94.8) fl MCH 31.4 (25.6-32.2) pg MCHC 31.8 L (32.2-35.5) g/dl RDW Std Deviation 49.0 H (36.4-46.3) fL Plt Count 272 (182-369) K/mm3 MPV 9.4 (9.4-12.3) fl Sodium 141 (136-145) mEq/L Potassium 3.5 (3.5-5.1) mEq/L Chloride 106 (98-107) mEq/L Carbon Dioxide 23 (21-32) mEq/L Anion Gap 15.5 H (5-15) BUN 17 (7-18) mg/dL Creatinine 0.9 (0.55-1.02) mg/dL Est Cr Clr Drug Dosing 41.18 mL/min Estimated GFR (MDRD) > 60 (>60) mL/min BUN/Creatinine Ratio 18.9 H (14-18) Glucose 94 (83-115) mg/dL Calcium 8.6 (8.5-10.1) mg/dL Total Bilirubin 0.2 (0.2-1.0) mg/dL AST 19 (15-37) U/L ALT 22 (14-59) U/L Alkaline Phosphatase 101 (46-116) U/L Total Protein 5.7 L (6.4-8.2) g/dl Albumin 2.9 L (3.4-5.0) g/dl Globulin 2.8 gm/dL Albumin/Globulin Ratio 1.0 (1-2) Med Orders - Current: Current Medications Bisacodyl (Dulcolax) 5 mg PO DAILY PRN PRN Reason: Constipation Cholecalciferol (Vitamin D3) 25 mcg PO BID [facility] Last Admin: 09/10/19 21:54 Dose: 25 mcg Cyanocobalamin (Vitamin B12) 1,000 mcg IM Q30D [facility] Last Admin: 09/10/19 16:01 Dose: Not Given Cyclobenzaprine HCl (Flexeril) 5 mg PO TID PRN PRN Reason: Spasms Last Admin: 09/11/19 00:12 Dose: 5 mg Docusate Sodium (Colace) 100 mg PO BID [facility] Last Admin: 09/10/19 21:53 Dose: 100 mg Gabapentin (Neurontin) 200 mg PO TID [facility] Last Admin: 09/10/19 21:53 Dose: 200 mg Gabapentin (Neurontin) 600 mg PO TID [facility] Last Admin: 09/10/19 21:54 Dose: 600 mg Cefazolin Sodium/Dextrose 2 gm (/ Premix) 50 mls @ 100 mls/hr IV Q8H [facility] Stop: 09/11/19 13:29 Last Admin: 09/11/19 04:10 Dose: 100 mls/hr Magnesium Hydroxide (Milk Of Magnesia) 30 ml PO BID PRN PRN Reason: Constipation Morphine Sulfate (Morphine) 2 mg IVPUSH Q2H PRN PRN Reason: Breakthrough Pain Naloxone HCl (Narcan) 0.1 mg IVPUSH Q5M PRN PRN Reason: Oversedation Menthol [Biofreeze] (*Pt's Own Medication) 0 dose TOP QID PRN PRN Reason: Pain Quinine Sulfate 324 Mg Pt's Own Medication 0 mg PO BEDTIME [facility] Last Admin: 09/10/19 23:06 Dose: Not Given Ondansetron HCl (Zofran) 4 mg IVPUSH Q6H PRN PRN Reason: Nausea/Vomiting Oxycodone/Acetaminophen (Percocet 325-5 Mg) 1 - 2 tab PO Q4H PRN PRN Reason: Pain Last Admin: 09/11/19 04:12 Dose: 2 tab Pantoprazole Sodium (Protonix) 40 mg PO BID [facility] Last Admin: 09/10/19 21:53 Dose: 40 mg Rivaroxaban (Xarelto) 10 mg PO DAILY [facility] Senna (Senna) 8.6 mg PO BID PRN PRN Reason: Constipation Sucralfate (Carafate) 1 gm PO QID [facility] Last Admin: 09/10/19 21:54 Dose: 1 gm Discontinued Medications Acetaminophen (Tylenol) 975 mg PO ONETIME [facility] Stop: 09/10/19 18:00 Last Admin: 09/10/19 10:44 Dose: 975 mg Bupivacaine HCl (Sensorcaine-Mpf 0.25%) Confirm Administered Dose 30 ml .ROUTE .STK-MED ONE Stop: 09/10/19 11:10 Last Admin: 09/10/19 13:36 Dose: 30 ml Cefazolin Sodium (Ancef) Confirm Administered Dose 2 gm .ROUTE .STK-MED ONE Stop: 09/10/19 11:10 Last Admin: 09/10/19 13:29 Dose: 2 gm Cefazolin Sodium (Ancef) Confirm Administered Dose 2 gm .ROUTE .STK-MED ONE Stop: 09/10/19 11:40 Morphine Sulfate 8 mg/Epinephrine HCl 0.3 mg/Cefuroxime Sodium 750 mg/Ketorolac Tromethamine 30 mg/Sodium Chloride 7.9 ml 0 mg .XX ASDIRECTED PRN PRN Reason: Pain Stop: 09/10/19 15:00 Last Admin: 09/10/19 13:35 Dose: 788.3 mg Dexamethasone (Dexamethasone) Confirm Administered Dose 20 mg .ROUTE .STK-MED ONE Stop: 09/10/19 11:40 Famotidine (Pepcid) 20 mg PO Q12H [facility] Famotidine (Pepcid) Confirm Administered Dose 20 mg .ROUTE .STK-MED ONE Stop: 09/10/19 11:45 Fentanyl (Sublimaze) Confirm Administered Dose 100 mcg .ROUTE .STK-MED ONE Stop: 09/10/19 09:14 Fentanyl (Sublimaze) Confirm Administered Dose 100 mcg .ROUTE .STK-MED ONE Stop: 09/10/19 12:13 Fentanyl (Sublimaze) Confirm Administered Dose 100 mcg .ROUTE .STK-MED ONE Stop: 09/10/19 12:45 Fentanyl (Sublimaze) 50 mcg IVPUSH Q5M PRN PRN Reason: Pain Stop: 09/10/19 18:00 Last Admin: 09/10/19 14:41 Dose: 50 mcg Fentanyl (Sublimaze) Confirm Administered Dose 100 mcg .ROUTE .STK-MED ONE Stop: 09/10/19 13:52 Glycopyrrolate () Confirm Administered Dose 1 mg .ROUTE .STK-MED ONE Stop: 09/10/19 13:53 Hydromorphone HCl (Dilaudid) Confirm Administered Dose 0.5 mg .ROUTE .STK-MED ONE Stop: 09/10/19 12:53 Hydromorphone HCl (Dilaudid) Confirm Administered Dose 0.5 mg .ROUTE .STK-MED ONE Stop: 09/10/19 13:00 Hydromorphone HCl (Dilaudid) 0.5 mg IVPUSH Q10M PRN PRN Reason: Pain (severe 7-10) Stop: 09/10/19 18:00 Last Admin: 09/10/19 14:53 Dose: 0.5 mg Hydromorphone HCl (Dilaudid) Confirm Administered Dose 0.5 mg .ROUTE .STK-MED ONE Stop: 09/10/19 13:49 Lactated Ringer's (Ringers, Lactated) 1,000 mls @ 125 mls/hr IV ASDIRECTED [facility] Stop: 09/10/19 23:00 Last Admin: 09/10/19 14:52 Dose: 125 mls/hr Lidocaine HCl (Xylocaine-Mpf 1%) Confirm Administered Dose 2 mls @ as directed .ROUTE .STK-MED ONE Stop: 09/10/19 08:51 Lactated Ringer's (Ringers, Lactated) Confirm Administered Dose 1,000 mls @ as directed .ROUTE .STK-MED ONE Stop: 09/10/19 09:14 Lidocaine HCl (Xylocaine-Mpf 1%) Confirm Administered Dose 4 mls @ as directed .ROUTE .STK-MED ONE Stop: 09/10/19 09:14 Iodine (Iodine 2% Mild Tincture) Confirm Administered Dose 30 ml .ROUTE .STK- MED ONE Stop: 09/10/19 11:10 Last Admin: 09/10/19 13:25 Dose: 18 ml Ketamine HCl (Ketalar) Confirm Administered Dose 500 mg .ROUTE .STK-MED ONE Stop: 09/10/19 12:25 Ketorolac Tromethamine (Toradol) 15 mg IVPUSH Q6H PRN PRN Reason: Pain Last Admin: 09/11/19 04:11 Dose: 15 mg Ketorolac Tromethamine (Toradol) Confirm Administered Dose 15 mg .ROUTE .STK- MED ONE Stop: 09/10/19 13:48 Labetalol HCl (Normodyne) Confirm Administered Dose 100 mg .ROUTE .STK-MED ONE Stop: 09/10/19 13:54 Lidocaine/Sodium Bicarbonate (Buffered Lidocaine 1% In Ns 8.4%) 0.25 ml IDERM ONETIME PRN PRN Reason: Prior to IV Start Stop: 09/10/19 18:00 Last Admin: 09/10/19 11:00 Dose: 0.25 ml Lisinopril (Prinivil) 40 mg PO DAILY [facility] Midazolam HCl (Versed 1 Mg/Ml) Confirm Administered Dose 2 mg .ROUTE .STK-MED ONE Stop: 09/10/19 13:02 Neostigmine Methylsulfate (Neostigmine) Confirm Administered Dose 5 mg .ROUTE .STK-MED ONE Stop: 09/10/19 13:53 Ondansetron HCl (Zofran) Confirm Administered Dose 4 mg .ROUTE .STK-MED ONE Stop: 09/10/19 09:14 Ondansetron HCl (Zofran) 4 mg IVPUSH ONETIME PRN PRN Reason: Nausea/Vomiting Stop: 09/10/19 18:00 Oxycodone HCl (Oxycontin) 10 mg PO ONETIME [facility] Stop: 09/10/19 18:00 Last Admin: 09/10/19 10:44 Dose: 10 mg Pregabalin (Lyrica) 50 mg PO ONETIME [facility] Stop: 09/10/19 18:00 Last Admin: 09/10/19 10:44 Dose: 50 mg Propofol (Diprivan 20 Ml) Confirm Administered Dose 400 mg .ROUTE .STK-MED ONE Stop: 09/10/19 09:14 Propofol (Diprivan 20 Ml) Confirm Administered Dose 400 mg .ROUTE .STK-MED ONE Stop: 09/10/19 12:23 Propofol (Diprivan 20 Ml) Confirm Administered Dose 200 mg .ROUTE .STK-MED ONE Stop: 09/10/19 12:57 Propofol (Diprivan 20 Ml) Confirm Administered Dose 400 mg .ROUTE .STK-MED ONE Stop: 09/10/19 12:58 Rocuronium Leslie (Zemuron) Confirm Administered Dose 50 mg .ROUTE .STK-MED ONE Stop: 09/10/19 11:38 Ropivacaine (Naropin 0.5%) Confirm Administered Dose 30 ml .ROUTE .STK-MED ONE Stop: 09/10/19 08:50 Scopolamine (Transderm-Scop) 1.5 mg TOP ONETIME [facility] Stop: 09/10/19 18:00 Last Admin: 09/10/19 10:43 Dose: 1.5 mg Sodium Chloride (Saline Flush) 10 ml FLUSH ASDIRECTED PRN PRN Reason: Keep Vein Open Stop: 09/10/19 18:00 Tranexamic Acid (Cyklokapron) Confirm Administered Dose 1,000 mg .ROUTE .STK- MED ONE Stop: 09/10/19 11:10 Last Admin: 09/10/19 13:39 Dose: 1,000 mg Vancomycin HCl (Vancomycin) Confirm Administered Dose 1 gm .ROUTE .STK-MED ONE Stop: 09/10/19 11:10 Last Admin: 09/10/19 13:37 Dose: 1 gm - Exam Quality Assessment: DVT Prophylaxis General: Alert, Oriented, Cooperative, No Acute Distress HEENT: Pupils Equal, Pupils Reactive, Mucous Membr. Moist/[place] Neck: Supple, Trachea Midline Lungs: Clear to Auscultation, Normal Respiratory Effort Cardiovascular: Regular Rate, Regular Rhythm, Murmurs GI/Abdominal Exam: Normal Bowel Sounds, Soft, Non-Tender, No Distention, No Abnormal Bruit (Female) Exam: Deferred Back Exam: Normal Inspection, Decreased Range of Motion Extremities: Normal Inspection, Normal Capillary Refill, Leg Pain, Limited Range of Motion, Other (Bandage in place on left leg. Cooling pack in place. ) Peripheral Pulses: 2+: Radial (L), Radial (R), Dorsalis Pedis (L), Dorsalis Pedis (R) Skin: Warm, Dry, Intact Wound/Incisions: Dressing Dry and Intact Neurological: No New Focal Deficit Psy/Mental Status: Alert, Normal Affect, Normal Mood Sepsis Event Note - Evaluation Sepsis Screening Result: No Definite Risk - Focused Exam Vital Signs: Vital Signs Temp Pulse Resp BP Pulse Ox Pulse Ox 09/11/19 00:14 98.1 F 70 20 134/91 H 95 09/10/19 20:26 92 L 09/10/19 19:22 98.2 F 81 145/70 H 94 L Date Exam was Performed: 09/11/19 Time Exam was Performed: 09:46 Consult PN Assessment/Plan POD#: 1 Procedures: Procedures AIRWAY INHALATION TREATMENT (04/26/16) BLOOD CULTURE FOR BACTERIA (12/16/14) BLOOD TRANSFUSION SERVICE (04/26/16) BLOOD TYPING SEROLOGIC ABO (09/06/16) BLOOD TYPING SEROLOGIC RH(D) (09/06/16) C-REACTIVE PROTEIN (04/26/16) CHEST WALL MANIPULATION (04/26/16) CHEST WALL MANIPULATION (04/26/16) CHEST X-RAY 1 VIEW FRONTAL (12/16/14) CHEST X-RAY 2VW FRONTAL&LATL (04/26/16) COMPATIBILITY TEST ANTIGLOB (04/26/16) COMPLETE CBC AUTOMATED (04/26/16) COMPLETE CBC W/AUTO DIFF WBC (02/14/17) COMPREHEN METABOLIC PANEL (02/14/17) DRAIN/INJ JOINT/BURSA W/O US (03/30/16) DXA BONE DENSITY AXIAL (04/22/16) ELECTROCARDIOGRAM TRACING (12/16/14) ELECTROLYTE PANEL (09/06/16) EMERGENCY DEPT VISIT (06/18/18) EVALUATE PT USE OF INHALER (04/26/16) EXTREMITY STUDY (04/26/16) FLUOROSCOPY <1 HR PHYS/QHP (02/14/17) GAIT TRAINING THERAPY (02/14/17) HEMATOCRIT (04/26/16) HEMOGLOBIN (04/26/16) MEASURE BLOOD OXYGEN LEVEL (04/26/16) MEASURE BLOOD OXYGEN LEVEL (12/16/14) METABOLIC PANEL TOTAL CA (09/06/16) MICROBE SUSCEPTIBLE SHAMA (12/16/14) MR-STAPH DNA AMP PROBE (02/14/17) NEEDLE LOCALIZATION BY XRAY (03/21/15) OT EVAL LOW COMPLEX 30 MIN (09/06/16) OT EVAL MOD COMPLEX 45 MIN (02/14/17) OT EVALUATION (04/26/16) PROTHROMBIN TIME (09/06/16) PT EVAL LOW COMPLEX 20 MIN (09/06/16) PT EVAL MOD COMPLEX 30 MIN (02/14/17) PT EVALUATION (04/26/16) RBC ANTIBODY SCREEN (09/06/16) ROUTINE VENIPUNCTURE (02/14/17) SELF CARE MNGMENT TRAINING (02/14/17) THER/PROPH/DIAG INJ SC/IM (06/18/18) THERAPEUTIC ACTIVITIES (02/14/17) THERAPEUTIC EXERCISES (02/14/17) URINALYSIS AUTO W/SCOPE (04/26/16) URINE BACTERIA CULTURE (12/16/14) URINE CULTURE/COLONY COUNT (12/16/14) X-RAY EXAM HIP UNI 1 VIEW (09/06/16) X-RAY EXAM OF SHOULDER (06/18/18) X-RAY EXAM OF SHOULDER (02/14/17) (1) S/P total knee arthroplasty SNOMED Code(s): 7319152814101, 071000317, 4186093352075 Code(s): Z96.659 - PRESENCE OF UNSPECIFIED ARTIFICIAL KNEE JOINT Priority: High Current Visit: Yes Qualifiers: Laterality: left Qualified Code(s): Z96.652 - Presence of left artificial knee joint (2) Insomnia SNOMED Code(s): 473789870 Code(s): G47.00 - INSOMNIA, UNSPECIFIED Priority: Low Current Visit: No Qualifiers: Insomnia type: unspecified Qualified Code(s): G47.00 - Insomnia, unspecified (3) Dysphagia SNOMED Code(s): 31447544, 994925724 Code(s): R13.10 - DYSPHAGIA, UNSPECIFIED Priority: Medium Current Visit: No Qualifiers: Dysphagia type: unspecified Qualified Code(s): R13.10 - Dysphagia, unspecified (4) Vitamin D deficiency SNOMED Code(s): 75273127 Code(s): E55.9 - VITAMIN D DEFICIENCY, UNSPECIFIED Priority: Low Current Visit: No (5) Ataxia SNOMED Code(s): 03966381 Code(s): R27.0 - ATAXIA, UNSPECIFIED Priority: Low Current Visit: No (6) Aortic heart murmur SNOMED Code(s): 740887652 Code(s): I35.8 - OTHER NONRHEUMATIC AORTIC VALVE DISORDERS Priority: Low Current Visit: No (7) Cervical spinal stenosis Priority: Low Current Visit: No (8) Positive nasal culture for methicillin resistant Staphylococcus aureus SNOMED Code(s): 402108248, 063596558 Code(s): Z22.322 - CARRIER OR SUSPECTED CARRIER OF METHICILLIN RESIS STAPH Priority: Medium Current Visit: No (9) APOLONIA (iron deficiency anemia) SNOMED Code(s): 03518635 Code(s): D50.9 - IRON DEFICIENCY ANEMIA, UNSPECIFIED Priority: Low Current Visit: No Qualifiers: Iron deficiency anemia type: unspecified iron deficiency Qualified Code(s) : D50.9 - Iron deficiency anemia, unspecified (10) Adjustment disorder SNOMED Code(s): 20858288 Code(s): F43.20 - ADJUSTMENT DISORDER, UNSPECIFIED Priority: Low Current Visit: No Qualifiers: Adjustment disorder type: unspecified type Qualified Code(s): F43.20 - Adjustment disorder, unspecified (11) Seborrheic keratoses SNOMED Code(s): 356650632 Code(s): L82.1 - OTHER SEBORRHEIC KERATOSIS Priority: Low Current Visit: No (12) History of Billroth I operation SNOMED Code(s): 18627759882055 Code(s): Z98.890 - OTHER SPECIFIED POSTPROCEDURAL STATES Priority: Low Current Visit: No (13) History of partial gastrectomy SNOMED Code(s): 195976178718442 Code(s): Z90.3 - ACQUIRED ABSENCE OF STOMACH [PART OF] Priority: Low Current Visit: No (14) B12 deficiency SNOMED Code(s): 704938891 Code(s): E53.8 - DEFICIENCY OF OTHER SPECIFIED B GROUP VITAMINS Priority: Low Current Visit: No (15) Bilateral tinnitus SNOMED Code(s): 4152777478699 Code(s): H93.13 - TINNITUS, BILATERAL Priority: Low Current Visit: No (16) Hiatal hernia SNOMED Code(s): 68092698 Code(s): K44.9 - DIAPHRAGMATIC HERNIA WITHOUT OBSTRUCTION OR GANGRENE Priority: Low Current Visit: No (17) Lumbar post-laminectomy syndrome Priority: Medium Current Visit: No (18) Chronic pain of multiple sites SNOMED Code(s): 65519804 Code(s): R52 - PAIN, UNSPECIFIED; G89.29 - OTHER CHRONIC PAIN Priority: Medium Current Visit: No (19) Osteoarthritis SNOMED Code(s): 185473105 Code(s): M19.90 - UNSPECIFIED OSTEOARTHRITIS, UNSPECIFIED SITE Priority: High Current Visit: Yes Qualifiers: Osteoarthritis location: knee Osteoarthritis type: primary Laterality: left Qualified Code(s): M17.12 - Unilateral primary osteoarthritis, left knee (20) S/P total hip arthroplasty SNOMED Code(s): 620457828728, 885394250150 Code(s): Z96.649 - PRESENCE OF UNSPECIFIED ARTIFICIAL HIP JOINT Priority: Low Current Visit: No Qualifiers: Laterality: bilateral Qualified Code(s): Z96.643 - Presence of artificial hip joint, bilateral (21) Status post total shoulder arthroplasty SNOMED Code(s): 853996789, 105340275 Code(s): Z96.619 - PRESENCE OF UNSPECIFIED ARTIFICIAL SHOULDER JOINT Priority: Low Current Visit: No Qualifiers: Laterality: unspecified laterality Qualified Code(s): Z96.619 - Presence of unspecified artificial shoulder joint (22) Chronic low back pain SNOMED Code(s): 758133983 Code(s): M54.5 - LOW BACK PAIN; G89.29 - OTHER CHRONIC PAIN Priority: Medium Current Visit: No Qualifiers: Back pain laterality: unspecified Sciatica laterality: sciatica laterality unspecified (23) Hyperlipidemia SNOMED Code(s): 41764326 Code(s): E78.5 - HYPERLIPIDEMIA, UNSPECIFIED Priority: Low Current Visit : No Qualifiers: Hyperlipidemia type: unspecified Qualified Code(s): E78.5 - Hyperlipidemia , unspecified (24) Hypertension SNOMED Code(s): 67834117 Code(s): I10 - ESSENTIAL (PRIMARY) HYPERTENSION Priority: Low Current Visit: No Qualifiers: Hypertension type: essential hypertension Qualified Code(s): I10 - Essential (primary) hypertension (25) Polymyalgia rheumatica SNOMED Code(s): 20271380 Code(s): M35.3 - POLYMYALGIA RHEUMATICA Priority: Low Current Visit: No Problem List Initiated/Reviewed/Updated: Yes Plan: I/P: Acute: S/P left total knee arthroplasty - post-operative day 1 -DVT prophylaxis and pain management per primary care team -PT/OT -IS/RT -Monitor oxygen saturation -Titrate oxygen as needed -Home medications reviewed -Vital signs stable -Monitor labs -Pre-operative Hgb was 12.7; Now 10.5 -Pre-operative GFR was 72; Now >60 -Pre-operative 12-lead EKG showed Sinus rhythm at 73 BPM. 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 Her PCP is Dr. Marie From a hospitalist standpoint Lauren is doing well. He pain is controlled. She has been up working with therapies and has ambulated. She is off of oxygen and has urinated. She has been utilizing her IS. Labs and vital signs remain stable. She has been tolerating oral intake. She is cleared for discharge pending primary team and PT/OT agreement. Thank you for allowing us to participate in the care of this patient!!
--- NOTE | 2019-09-11 07:46 | PCM.SURGPN ---
- General Info Date of Service: 09/11/19 POD#: 1 Functional Status: Reports: Pain Controlled, Tolerating Diet, Ambulating, Urinating, Incentive Spirometry, Other (The pt states she has been completing exercise as PT has instructed.) - Patient Data Vitals - Most Recent: Last Vital Signs Temp 98.1 F 09/11/19 04:06 Pulse 71 09/11/19 04:06 Resp 16 09/11/19 04:06 BP 117/87 09/11/19 04:06 Pulse Ox 100 09/11/19 04:06 Weight - Most Recent: 162 lb I&O - Last 24 Hours: Intake & Output 09/10/19 09/11/19 09/11/19 22:59 06:59 14:59 Intake Total 1690 2775 Output Total 1600 Balance 1690 1175 Lab Results Last 24 Hrs: Laboratory Results - last 24 hr 09/11/19 09/11/19 Range/Units 05:00 05:00 WBC 12.58 H (3.98-10.04) K/mm3 RBC 3.34 L (3.98-5.22) M/mm3 Hgb 10.5 L (11.2-15.7) gm/dl Hct 33.0 L (34.1-44.9) % MCV 98.8 H D (79.4-94.8) fl MCH 31.4 (25.6-32.2) pg MCHC 31.8 L (32.2-35.5) g/dl RDW Std Deviation 49.0 H (36.4-46.3) fL Plt Count 272 (182-369) K/mm3 MPV 9.4 (9.4-12.3) fl Sodium 141 (136-145) mEq/L Potassium 3.5 (3.5-5.1) mEq/L Chloride 106 (98-107) mEq/L Carbon Dioxide 23 (21-32) mEq/L Anion Gap 15.5 H (5-15) BUN 17 (7-18) mg/dL Creatinine 0.9 (0.55-1.02) mg/dL Est Cr Clr Drug Dosing 41.18 mL/min Estimated GFR (MDRD) > 60 (>60) mL/min BUN/Creatinine Ratio 18.9 H (14-18) Glucose 94 (83-115) mg/dL Calcium 8.6 (8.5-10.1) mg/dL Total Bilirubin 0.2 (0.2-1.0) mg/dL AST 19 (15-37) U/L ALT 22 (14-59) U/L Alkaline Phosphatase 101 (46-116) U/L Total Protein 5.7 L (6.4-8.2) g/dl Albumin 2.9 L (3.4-5.0) g/dl Globulin 2.8 gm/dL Albumin/Globulin Ratio 1.0 (1-2) Med Orders - Current: Current Medications Bisacodyl (Dulcolax) 5 mg PO DAILY PRN PRN Reason: Constipation Cholecalciferol (Vitamin D3) 25 mcg PO BID [facility] Last Admin: 09/10/19 21:54 Dose: 25 mcg Cyanocobalamin (Vitamin B12) 1,000 mcg IM Q30D [facility] Last Admin: 09/10/19 16:01 Dose: Not Given Cyclobenzaprine HCl (Flexeril) 5 mg PO TID PRN PRN Reason: Spasms Last Admin: 09/11/19 00:12 Dose: 5 mg Docusate Sodium (Colace) 100 mg PO BID [facility] Last Admin: 09/10/19 21:53 Dose: 100 mg Gabapentin (Neurontin) 200 mg PO TID [facility] Last Admin: 09/10/19 21:53 Dose: 200 mg Gabapentin (Neurontin) 600 mg PO TID [facility] Last Admin: 09/10/19 21:54 Dose: 600 mg Cefazolin Sodium/Dextrose 2 gm (/ Premix) 50 mls @ 100 mls/hr IV Q8H [facility] Stop: 09/11/19 13:29 Last Admin: 09/11/19 04:10 Dose: 100 mls/hr Magnesium Hydroxide (Milk Of Magnesia) 30 ml PO BID PRN PRN Reason: Constipation Morphine Sulfate (Morphine) 2 mg IVPUSH Q2H PRN PRN Reason: Breakthrough Pain Naloxone HCl (Narcan) 0.1 mg IVPUSH Q5M PRN PRN Reason: Oversedation Menthol [Biofreeze] (*Pt's Own Medication) 0 dose TOP QID PRN PRN Reason: Pain Quinine Sulfate 324 Mg Pt's Own Medication 0 mg PO BEDTIME [facility] Last Admin: 09/10/19 23:06 Dose: Not Given Ondansetron HCl (Zofran) 4 mg IVPUSH Q6H PRN PRN Reason: Nausea/Vomiting Oxycodone/Acetaminophen (Percocet 325-5 Mg) 1 - 2 tab PO Q4H PRN PRN Reason: Pain Last Admin: 09/11/19 04:12 Dose: 2 tab Pantoprazole Sodium (Protonix) 40 mg PO BID [facility] Last Admin: 09/10/19 21:53 Dose: 40 mg Rivaroxaban (Xarelto) 10 mg PO DAILY [facility] Senna (Senna) 8.6 mg PO BID PRN PRN Reason: Constipation Sucralfate (Carafate) 1 gm PO QID [facility] Last Admin: 09/10/19 21:54 Dose: 1 gm Discontinued Medications Acetaminophen (Tylenol) 975 mg PO ONETIME [facility] Stop: 09/10/19 18:00 Last Admin: 09/10/19 10:44 Dose: 975 mg Bupivacaine HCl (Sensorcaine-Mpf 0.25%) Confirm Administered Dose 30 ml .ROUTE .STK-MED ONE Stop: 09/10/19 11:10 Last Admin: 09/10/19 13:36 Dose: 30 ml Cefazolin Sodium (Ancef) Confirm Administered Dose 2 gm .ROUTE .STK-MED ONE Stop: 09/10/19 11:10 Last Admin: 09/10/19 13:29 Dose: 2 gm Cefazolin Sodium (Ancef) Confirm Administered Dose 2 gm .ROUTE .STK-MED ONE Stop: 09/10/19 11:40 Morphine Sulfate 8 mg/Epinephrine HCl 0.3 mg/Cefuroxime Sodium 750 mg/Ketorolac Tromethamine 30 mg/Sodium Chloride 7.9 ml 0 mg .XX ASDIRECTED PRN PRN Reason: Pain Stop: 09/10/19 15:00 Last Admin: 09/10/19 13:35 Dose: 788.3 mg Dexamethasone (Dexamethasone) Confirm Administered Dose 20 mg .ROUTE .STK-MED ONE Stop: 09/10/19 11:40 Famotidine (Pepcid) 20 mg PO Q12H [facility] Famotidine (Pepcid) Confirm Administered Dose 20 mg .ROUTE .STK-MED ONE Stop: 09/10/19 11:45 Fentanyl (Sublimaze) Confirm Administered Dose 100 mcg .ROUTE .STK-MED ONE Stop: 09/10/19 09:14 Fentanyl (Sublimaze) Confirm Administered Dose 100 mcg .ROUTE .STK-MED ONE Stop: 09/10/19 12:13 Fentanyl (Sublimaze) Confirm Administered Dose 100 mcg .ROUTE .STK-MED ONE Stop: 09/10/19 12:45 Fentanyl (Sublimaze) 50 mcg IVPUSH Q5M PRN PRN Reason: Pain Stop: 09/10/19 18:00 Last Admin: 09/10/19 14:41 Dose: 50 mcg Fentanyl (Sublimaze) Confirm Administered Dose 100 mcg .ROUTE .STK-MED ONE Stop: 09/10/19 13:52 Glycopyrrolate () Confirm Administered Dose 1 mg .ROUTE .STK-MED ONE Stop: 09/10/19 13:53 Hydromorphone HCl (Dilaudid) Confirm Administered Dose 0.5 mg .ROUTE .STK-MED ONE Stop: 09/10/19 12:53 Hydromorphone HCl (Dilaudid) Confirm Administered Dose 0.5 mg .ROUTE .STK-MED ONE Stop: 09/10/19 13:00 Hydromorphone HCl (Dilaudid) 0.5 mg IVPUSH Q10M PRN PRN Reason: Pain (severe 7-10) Stop: 09/10/19 18:00 Last Admin: 09/10/19 14:53 Dose: 0.5 mg Hydromorphone HCl (Dilaudid) Confirm Administered Dose 0.5 mg .ROUTE .STK-MED ONE Stop: 09/10/19 13:49 Lactated Ringer's (Ringers, Lactated) 1,000 mls @ 125 mls/hr IV ASDIRECTED [facility] Stop: 09/10/19 23:00 Last Admin: 09/10/19 14:52 Dose: 125 mls/hr Lidocaine HCl (Xylocaine-Mpf 1%) Confirm Administered Dose 2 mls @ as directed .ROUTE .STK-MED ONE Stop: 09/10/19 08:51 Lactated Ringer's (Ringers, Lactated) Confirm Administered Dose 1,000 mls @ as directed .ROUTE .STK-MED ONE Stop: 09/10/19 09:14 Lidocaine HCl (Xylocaine-Mpf 1%) Confirm Administered Dose 4 mls @ as directed .ROUTE .STK-MED ONE Stop: 09/10/19 09:14 Iodine (Iodine 2% Mild Tincture) Confirm Administered Dose 30 ml .ROUTE .STK- MED ONE Stop: 09/10/19 11:10 Last Admin: 09/10/19 13:25 Dose: 18 ml Ketamine HCl (Ketalar) Confirm Administered Dose 500 mg .ROUTE .STK-MED ONE Stop: 09/10/19 12:25 Ketorolac Tromethamine (Toradol) 15 mg IVPUSH Q6H PRN PRN Reason: Pain Last Admin: 09/11/19 04:11 Dose: 15 mg Ketorolac Tromethamine (Toradol) Confirm Administered Dose 15 mg .ROUTE .STK- MED ONE Stop: 09/10/19 13:48 Labetalol HCl (Normodyne) Confirm Administered Dose 100 mg .ROUTE .STK-MED ONE Stop: 09/10/19 13:54 Lidocaine/Sodium Bicarbonate (Buffered Lidocaine 1% In Ns 8.4%) 0.25 ml IDERM ONETIME PRN PRN Reason: Prior to IV Start Stop: 09/10/19 18:00 Last Admin: 09/10/19 11:00 Dose: 0.25 ml Lisinopril (Prinivil) 40 mg PO DAILY [facility] Midazolam HCl (Versed 1 Mg/Ml) Confirm Administered Dose 2 mg .ROUTE .STK-MED ONE Stop: 09/10/19 13:02 Neostigmine Methylsulfate (Neostigmine) Confirm Administered Dose 5 mg .ROUTE .STK-MED ONE Stop: 09/10/19 13:53 Ondansetron HCl (Zofran) Confirm Administered Dose 4 mg .ROUTE .STK-MED ONE Stop: 09/10/19 09:14 Ondansetron HCl (Zofran) 4 mg IVPUSH ONETIME PRN PRN Reason: Nausea/Vomiting Stop: 09/10/19 18:00 Oxycodone HCl (Oxycontin) 10 mg PO ONETIME [facility] Stop: 09/10/19 18:00 Last Admin: 09/10/19 10:44 Dose: 10 mg Pregabalin (Lyrica) 50 mg PO ONETIME [facility] Stop: 09/10/19 18:00 Last Admin: 09/10/19 10:44 Dose: 50 mg Propofol (Diprivan 20 Ml) Confirm Administered Dose 400 mg .ROUTE .STK-MED ONE Stop: 09/10/19 09:14 Propofol (Diprivan 20 Ml) Confirm Administered Dose 400 mg .ROUTE .STK-MED ONE Stop: 09/10/19 12:23 Propofol (Diprivan 20 Ml) Confirm Administered Dose 200 mg .ROUTE .STK-MED ONE Stop: 09/10/19 12:57 Propofol (Diprivan 20 Ml) Confirm Administered Dose 400 mg .ROUTE .STK-MED ONE Stop: 09/10/19 12:58 Rocuronium [place] (Zemuron) Confirm Administered Dose 50 mg .ROUTE .STK-MED ONE Stop: 09/10/19 11:38 Ropivacaine (Naropin 0.5%) Confirm Administered Dose 30 ml .ROUTE .STK-MED ONE Stop: 09/10/19 08:50 Scopolamine (Transderm-Scop) 1.5 mg TOP ONETIME [facility] Stop: 09/10/19 18:00 Last Admin: 09/10/19 10:43 Dose: 1.5 mg Sodium Chloride (Saline Flush) 10 ml FLUSH ASDIRECTED PRN PRN Reason: Keep Vein Open Stop: 09/10/19 18:00 Tranexamic Acid (Cyklokapron) Confirm Administered Dose 1,000 mg .ROUTE .STK- MED ONE Stop: 09/10/19 11:10 Last Admin: 09/10/19 13:39 Dose: 1,000 mg Vancomycin HCl (Vancomycin) Confirm Administered Dose 1 gm .ROUTE .STK-MED ONE Stop: 09/10/19 11:10 Last Admin: 09/10/19 13:37 Dose: 1 gm - Exam Wound/Incisions: Dressing Dry and Intact General: Alert, Cooperative, No Acute Distress Lungs: Normal Respiratory Effort Extremities: Other (NVS intact for BLE. Rishabh's negative for BLE.) Sepsis Event Note - Evaluation Sepsis Screening Result: No Definite Risk - Focused Exam Vital Signs: Vital Signs Temp Pulse Resp BP Pulse Ox Pulse Ox 09/11/19 04:06 98.1 F 71 16 117/87 100 09/11/19 00:14 98.1 F 70 20 134/91 H 95 09/10/19 20:26 92 L Date Exam was Performed: 09/11/19 Time Exam was Performed: 07:44 - Problem List Review Problem List Initiated/Reviewed/Updated: Yes - My Orders Last 24 Hours: Active Orders 24 hr Category Date Time Status Patient Status [ADT] Routine ADT 09/10/19 07:07 Active Ambulate [RC] ,, Care 09/10/19 07:07 Active Antiembolic Devices [RC] BID Care 09/10/19 07:08 Active Cooling Warming Measures [RC] ASDIRECTED Care 09/10/19 13:32 Active May Shower [RC] ASDIRECTED Care 09/10/19 07:07 Active Notify Provider Consults [RC] ASDIRECTED Care 09/10/19 07:11 Active Oxygen Therapy [RC] PRN Care 09/10/19 07:07 Active Pulse Oximetry [RC] ASDIRECTED Care 09/10/19 13:32 Active RT Incentive Spirometry [RC] Q1HWA Care 09/10/19 07:06 Active Ready for Discharge [RC] PER UNIT ROUTINE Care 09/11/19 07:40 Ordered Up to Chair [RC] ASDIRECTED Care 09/10/19 07:07 Active Vital Signs [RC] Q15M Care 09/10/19 13:32 Inactive Vital Signs [RC] Q4HR Care 09/10/19 07:07 Active Consult to Physician [CONS] Routine Cons 09/10/19 07:07 Active OT Evaluation and Treatment [CONS] Routine Cons 09/10/19 07:06 Active PT Evaluation and Treatment [CONS] Routine Cons 09/10/19 07:06 Active Regular Diet [DIET] Diet 09/10/19 Lunch Active Acetaminophen/oxyCODONE [Percocet 325-5 MG] Med 09/10/19 07:06 Active 1 - 2 tab PO Q4H PRN Cholecalciferol (Vitamin D3) [Vitamin D3] Med 09/10/19 21:00 Active 25 mcg PO BID Cyanocobalamin (Vitamin B12) [Vitamin B12] Med 09/10/19 14:30 Active 1,000 mcg IM Q30D Cyclobenzaprine [Flexeril] Med 09/10/19 07:06 Active 5 mg PO TID PRN Docusate Sodium [Colace] Med 09/10/19 21:00 Active 100 mg PO BID Gabapentin [Neurontin] Med 09/10/19 15:00 Active 200 mg PO TID Gabapentin [Neurontin] Med 09/10/19 15:00 Active 600 mg PO TID Magnesium Hydroxide [Milk of Magnesia] Med 09/10/19 07:07 Active 30 ml PO BID PRN Menthol [Biofreeze] Med 09/10/19 14:20 Active 0 dose TOP QID PRN Morphine Med 09/10/19 07:07 Active 2 mg IVPUSH Q2H PRN Naloxone [Narcan] Med 09/10/19 07:07 Active 0.1 mg IVPUSH Q5M PRN Ondansetron [Zofran] Med 09/10/19 07:07 Active 4 mg IVPUSH Q6H PRN Pantoprazole [ProTONIX] Med 09/10/19 21:00 Active 40 mg PO BID Rivaroxaban [Xarelto] Med 09/11/19 09:00 Active 10 mg PO DAILY Sennosides [Senna] Med 09/10/19 07:07 Active 8.6 mg PO BID PRN Sucralfate [Carafate] Med 09/10/19 17:00 Active 1 gm PO QID bisacodyL [Dulcolax] Med 09/10/19 07:07 Active 5 mg PO DAILY PRN ceFAZolin [Ancef] 2 gm Med 09/10/19 21:00 Active Premix Bag 1 bag IV Q8H quiNINE sulfate [Quinine Sulfate] Med 09/10/19 21:00 Active 0 mg PO BEDTIME Antiembolic Hose [OM.PC] Per Unit Routine Oth 09/10/19 07:09 Ordered Ice Therapy [OM.PC] Per Unit Routine Oth 09/10/19 07:09 Ordered Sequential Compression Device [OM.PC] Per Unit Routine Oth 09/10/19 07:06 Ordered Resuscitation Status Routine Resus Stat 09/10/19 07:07 Ordered Medication Orders Bisacodyl (Dulcolax) 5 mg PO DAILY PRN PRN Reason: Constipation Cholecalciferol (Vitamin D3) 25 mcg PO BID [facility] Last Admin: 09/10/19 21:54 Dose: 25 mcg Cyanocobalamin (Vitamin B12) 1,000 mcg IM Q30D [facility] Last Admin: 09/10/19 16:01 Dose: Cyclobenzaprine HCl (Flexeril) 5 mg PO TID PRN PRN Reason: Spasms Last Admin: 09/11/19 00:12 Dose: 5 mg Admin: 09/10/19 16:10 Dose: 5 mg Docusate Sodium (Colace) 100 mg PO BID [facility] Last Admin: 09/10/19 21:53 Dose: 100 mg Gabapentin (Neurontin) 200 mg PO TID [facility] Last Admin: 09/10/19 21:53 Dose: 200 mg Admin: 09/10/19 15:59 Dose: 200 mg Gabapentin (Neurontin) 600 mg PO TID [facility] Last Admin: 09/10/19 21:54 Dose: 600 mg Admin: 09/10/19 15:59 Dose: 600 mg Cefazolin Sodium/Dextrose 2 gm (/ Premix) 50 mls @ 100 mls/hr IV Q8H [facility] Stop: 09/11/19 13:29 Last Admin: 09/11/19 04:10 Dose: 100 mls/hr Infusion: 09/10/19 22:17 Dose: 100 mls/hr Admin: 09/10/19 21:47 Dose: 100 mls/hr Magnesium Hydroxide (Milk Of Magnesia) 30 ml PO BID PRN PRN Reason: Constipation Morphine Sulfate (Morphine) 2 mg IVPUSH Q2H PRN PRN Reason: Breakthrough Pain Naloxone HCl (Narcan) 0.1 mg IVPUSH Q5M PRN PRN Reason: Oversedation Menthol [Biofreeze] (*Pt's Own Medication) 0 dose TOP QID PRN PRN Reason: Pain Quinine Sulfate 324 Mg Pt's Own Medication 0 mg PO BEDTIME [facility] Last Admin: 09/10/19 23:06 Dose: Ondansetron HCl (Zofran) 4 mg IVPUSH Q6H PRN PRN Reason: Nausea/Vomiting Oxycodone/Acetaminophen (Percocet 325-5 Mg) 1 - 2 tab PO Q4H PRN PRN Reason: Pain Last Admin: 09/11/19 04:12 Dose: 2 tab Admin: 09/10/19 23:05 Dose: 2 tab Admin: 09/10/19 18:34 Dose: 2 tab Admin: 09/10/19 14:38 Dose: 2 tab Pantoprazole Sodium (Protonix) 40 mg PO BID [facility] Last Admin: 09/10/19 21:53 Dose: 40 mg Rivaroxaban (Xarelto) 10 mg PO DAILY [facility] Senna (Senna) 8.6 mg PO BID PRN PRN Reason: Constipation Sucralfate (Carafate) 1 gm PO QID [facility] Last Admin: 09/10/19 21:54 Dose: 1 gm Admin: 09/10/19 15:59 Dose: 1 gm - Assessment Assessment (Free Text/Narrative):: POD#1 - left TKA - Plan Plan (Free Text/Narrative):: 1. Hgb 10.5. 2. Xarelto for VTE prophylaxis (hx partial gastrectomy), frequent mobility, TEDs. 3. Discharge to home today. The pt will have the assistance of her and granddaughter. 4. Outpatient therapy - the pt is scheduled for later this week. The pt's case was discussed with Dr. Mckinney.
--- NOTE | 2019-09-11 08:00 | PCM.DCSUM1 ---
Discharge Summary - Hospital Course Brief History: Lauren Worley" is a 73 yo female who underwent left TKA with Dr. Mckinney on 09-10-2019. The procedure was completed under general anesthesia and a post-operative adductor canal block was placed. The pt tolerated the procedure well and was admitted to the Medical-Surgical Unit. Medical management was provided by the Hospitalist service. The pt's Hgb on POD#1 was 10.5. On POD#1, Xarelto 10mg PO daily was initiated for VTE prophylaxis. SCDs and TEDs were also ordered. A Mepilex dressing was placed at the incision site at the time of surgery and remained clean and dry. The pt participated in P.T. and O.T. and progressed well. The pt was allowed to WBAT and used a FWW for mobility. On POD#1, the pt was deemed appropriate to discharge to home with her . - Discharge Data Discharge Date: 09/11/19 Discharge Disposition: Home, Self-Care 01 Condition: Good - Referral to Home Health Primary Care Physician: Layne Marie MD - Patient Summary/Data Consults: Consultations 09/10/19 07:06 OT Evaluation and Treatment [CONS] Routine PT Evaluation and Treatment [CONS] Routine 09/10/19 07:07 Consult to Physician [CONS] Routine - Patient Instructions Diet: Usual Diet as Tolerated Activity: Apply Ice, As Tolerated, Elevate Extremity, Full Weight Bearing Driving: Do Not Drive Showering/Bathing: May Shower Wound/Incision Care: Keep Operative Site/Wound Site Clean and Dry, Do NOT Change Dressing Notify Provider of: Fever, Increased Pain, Swelling and Redness, Drainage, Nausea and/or Vomiting Other/Special Instructions: Please get up and moving around EVERY HOUR while awake. This helps to prevent blood clots. Please use your walker and have help with mobility as needed. Take a short walk in your home every hour while awake. Please take the Xarelto blood thinner medication daily as directed. At home, please complete the exercises that you learned during the Hospital stay. Schedule for physical therapy. Use the pain medication as needed. The medication may cause drowsiness and constipation. Contact your primary care provider for instructions if you are constipated. You may use a stool softener like docusate sodium or Colace 100mg twice daily and/or a laxative like Miralax daily for constipation. Increase your water and fiber intake while you are using the pain medication. Discontinue use of the pain medication as soon as able. Please do not use other medications that may cause drowsiness (other pain medications, anxiety pills, cold medications, sleeping pills, etc) while using the prescription pain medication. Do not use alcohol while using the pain medication. You may use acetaminophen or Tylenol for pain management, however, please ensure you are not using over 4000 mg or 4 grams of acetaminophen per day from all sources. Your pain medication has 325mg of acetaminophen per tablet. At this time, please do not use ibuprofen (Motrin, Advil) or naproxen (Aleve) for pain management as you are using the Xarelto. When the Xarelto course is completed in 4 weeks, you could use ibuprofen or naproxen for pain management (if this is allowed by your primary care provider) . Wear the SHANA hose during the day and you may remove these at night. Elevate the limb to decrease swelling. Place ice to the area often. Place a towel between your skin and the blue pad. Use the incentive spirometer often. Take deep breaths throughout the day. Please keep the dressing in place until follow -up. Notify the Clinic if the dressing becomes saturated. Increase your protein intake while you are healing. If you have diabetes, please closely monitor your blood sugars and notify your primary care provider with abnormal values. Elevated blood sugars increases the risk of infection. You were prescribed Flexeril or cyclobenzaprine for muscle spasms. You may use this medication OR the methocarbamol BUT NOT BOTH of these medications. Please choose ONE of the medications to use for spasm.. DO NOT use Ultram or tramadol while using Percocet (oxycodone with Tylelnol). DO NOT use the medications together. Choose ONE of the medications to use for pain.. Call the Clinic with questions or concerns - [phone]. - Discharge Plan *PRESCRIPTION DRUG MONITORING PROGRAM REVIEWED*: No *COPY OF PRESCRIPTION DRUG MONITORING REPORT IN PATIENT NOVA: No Prescriptions/Med Rec: Acetaminophen/oxyCODONE [Percocet 325-5 MG] 1 - 2 tab PO Q4H PRN #60 tablet PRN Reason: Pain Cyclobenzaprine [Flexeril] 5 mg PO BID PRN #30 tablet PRN Reason: Spasms Rivaroxaban [Xarelto] 10 mg PO DAILY #30 tablet Home Medications: Home Meds Cyanocobalamin (Vitamin B-12) [Cyanocobalamin Injection] 1,000 mcg IM Q30D 12/13 [History] Gabapentin 800 mg PO TID 12/13/14 [History] Pantoprazole [ProTONIX] 40 mg PO BID 12/13/14 [History] Cholecalciferol (Vitamin D3) [Vitamin D3] 2,000 units PO BID 12/16/14 [History] Ondansetron 4 mg PO QID PRN 09/03/16 [History] Estradiol Valerate 20 mg IM Q30D 09/07/19 [History] Menthol [Biofreeze] 1 dose TOP QID PRN 09/07/19 [History] Sucralfate [Carafate] 1 gm PO QID 09/07/19 [History] hydroCHLOROthiazide [Hydrochlorothiazide] 12.5 mg PO DAILY 09/07/19 [History] lisinopriL [Lisinopril] 40 mg PO DAILY 09/07/19 [History] quiNINE sulfate [Quinine Sulfate] 324 mg PO BEDTIME 09/07/19 [History] Acetaminophen/oxyCODONE [Percocet 325-5 MG] 1 - 2 tab PO Q4H PRN #60 tablet 06/20 [Rx] Cyclobenzaprine [Flexeril] 5 mg PO BID PRN #30 tablet 09/11/19 [Rx] Docusate Sodium [Colace] 100 mg PO BID cap 09/11/19 [Rx] Magnesium Hydroxide [Milk of Magnesia] 30 ml PO BID PRN cup 09/11/19 [Rx] Rivaroxaban [Xarelto] 10 mg PO DAILY #30 tablet 09/11/19 [Rx] Sennosides [Senna] 8.6 mg PO BID PRN tablet 09/11/19 [Rx] bisacodyL [Dulcolax] 5 mg PO DAILY PRN tablet 09/11/19 [Rx] Patient Handouts: Rivaroxaban oral tablets, Total Knee Replacement, Easy-to- Read Referrals: Reba Felder PA-C [Physician Coding Coordinator] - - Discharge Summary/Plan Comment DC Time >30 min.: No - Patient Data Vitals - Most Recent: Last Vital Signs Temp 98.1 F 09/11/19 04:06 Pulse 71 09/11/19 04:06 Resp 16 09/11/19 04:06 BP 117/87 09/11/19 04:06 Pulse Ox 100 09/11/19 04:06 Weight - Most Recent: 162 lb I&O - Last 24 hours: Intake & Output 09/10/19 09/11/19 09/11/19 22:59 06:59 14:59 Intake Total 1690 2775 Output Total 1600 Balance 1690 1175 Lab Results - Last 24 hrs: Laboratory Results - last 24 hr 09/11/19 09/11/19 Range/Units 05:00 05:00 WBC 12.58 H (3.98-10.04) K/mm3 RBC 3.34 L (3.98-5.22) M/mm3 Hgb 10.5 L (11.2-15.7) gm/dl Hct 33.0 L (34.1-44.9) % MCV 98.8 H D (79.4-94.8) fl MCH 31.4 (25.6-32.2) pg MCHC 31.8 L (32.2-35.5) g/dl RDW Std Deviation 49.0 H (36.4-46.3) fL Plt Count 272 (182-369) K/mm3 MPV 9.4 (9.4-12.3) fl Sodium 141 (136-145) mEq/L Potassium 3.5 (3.5-5.1) mEq/L Chloride 106 (98-107) mEq/L Carbon Dioxide 23 (21-32) mEq/L Anion Gap 15.5 H (5-15) BUN 17 (7-18) mg/dL Creatinine 0.9 (0.55-1.02) mg/dL Est Cr Clr Drug Dosing 41.18 mL/min Estimated GFR (MDRD) > 60 (>60) mL/min BUN/Creatinine Ratio 18.9 H (14-18) Glucose 94 (83-115) mg/dL Calcium 8.6 (8.5-10.1) mg/dL Total Bilirubin 0.2 (0.2-1.0) mg/dL AST 19 (15-37) U/L ALT 22 (14-59) U/L Alkaline Phosphatase 101 (46-116) U/L Total Protein 5.7 L (6.4-8.2) g/dl Albumin 2.9 L (3.4-5.0) g/dl Globulin 2.8 gm/dL Albumin/Globulin Ratio 1.0 (1-2) Med Orders - Current: Current Medications Bisacodyl (Dulcolax) 5 mg PO DAILY PRN PRN Reason: Constipation Cholecalciferol (Vitamin D3) 25 mcg PO BID [facility] Last Admin: 09/10/19 21:54 Dose: 25 mcg Cyanocobalamin (Vitamin B12) 1,000 mcg IM Q30D [facility] Last Admin: 09/10/19 16:01 Dose: Not Given Cyclobenzaprine HCl (Flexeril) 5 mg PO TID PRN PRN Reason: Spasms Last Admin: 09/11/19 00:12 Dose: 5 mg Docusate Sodium (Colace) 100 mg PO BID [facility] Last Admin: 09/10/19 21:53 Dose: 100 mg Gabapentin (Neurontin) 200 mg PO TID [facility] Last Admin: 09/10/19 21:53 Dose: 200 mg Gabapentin (Neurontin) 600 mg PO TID [facility] Last Admin: 09/10/19 21:54 Dose: 600 mg Cefazolin Sodium/Dextrose 2 gm (/ Premix) 50 mls @ 100 mls/hr IV Q8H [facility] Stop: 09/11/19 13:29 Last Admin: 09/11/19 04:10 Dose: 100 mls/hr Magnesium Hydroxide (Milk Of Magnesia) 30 ml PO BID PRN PRN Reason: Constipation Morphine Sulfate (Morphine) 2 mg IVPUSH Q2H PRN PRN Reason: Breakthrough Pain Naloxone HCl (Narcan) 0.1 mg IVPUSH Q5M PRN PRN Reason: Oversedation Menthol [Biofreeze] (*Pt's Own Medication) 0 dose TOP QID PRN PRN Reason: Pain Quinine Sulfate 324 Mg Pt's Own Medication 0 mg PO BEDTIME [facility] Last Admin: 09/10/19 23:06 Dose: Not Given Ondansetron HCl (Zofran) 4 mg IVPUSH Q6H PRN PRN Reason: Nausea/Vomiting Oxycodone/Acetaminophen (Percocet 325-5 Mg) 1 - 2 tab PO Q4H PRN PRN Reason: Pain Last Admin: 09/11/19 04:12 Dose: 2 tab Pantoprazole Sodium (Protonix) 40 mg PO BID [facility] Last Admin: 09/10/19 21:53 Dose: 40 mg Rivaroxaban (Xarelto) 10 mg PO DAILY [facility] Senna (Senna) 8.6 mg PO BID PRN PRN Reason: Constipation Sucralfate (Carafate) 1 gm PO QID [facility] Last Admin: 09/10/19 21:54 Dose: 1 gm Discontinued Medications Acetaminophen (Tylenol) 975 mg PO ONETIME [facility] Stop: 09/10/19 18:00 Last Admin: 09/10/19 10:44 Dose: 975 mg Bupivacaine HCl (Sensorcaine-Mpf 0.25%) Confirm Administered Dose 30 ml .ROUTE .STK-MED ONE Stop: 09/10/19 11:10 Last Admin: 09/10/19 13:36 Dose: 30 ml Cefazolin Sodium (Ancef) Confirm Administered Dose 2 gm .ROUTE .STK-MED ONE Stop: 09/10/19 11:10 Last Admin: 09/10/19 13:29 Dose: 2 gm Cefazolin Sodium (Ancef) Confirm Administered Dose 2 gm .ROUTE .STK-MED ONE Stop: 09/10/19 11:40 Morphine Sulfate 8 mg/Epinephrine HCl 0.3 mg/Cefuroxime Sodium 750 mg/Ketorolac Tromethamine 30 mg/Sodium Chloride 7.9 ml 0 mg .XX ASDIRECTED PRN PRN Reason: Pain Stop: 09/10/19 15:00 Last Admin: 09/10/19 13:35 Dose: 788.3 mg Dexamethasone (Dexamethasone) Confirm Administered Dose 20 mg .ROUTE .STK-MED ONE Stop: 09/10/19 11:40 Famotidine (Pepcid) 20 mg PO Q12H [facility] Famotidine (Pepcid) Confirm Administered Dose 20 mg .ROUTE .STK-MED ONE Stop: 09/10/19 11:45 Fentanyl (Sublimaze) Confirm Administered Dose 100 mcg .ROUTE .STK-MED ONE Stop: 09/10/19 09:14 Fentanyl (Sublimaze) Confirm Administered Dose 100 mcg .ROUTE .STK-MED ONE Stop: 09/10/19 12:13 Fentanyl (Sublimaze) Confirm Administered Dose 100 mcg .ROUTE .STK-MED ONE Stop: 09/10/19 12:45 Fentanyl (Sublimaze) 50 mcg IVPUSH Q5M PRN PRN Reason: Pain Stop: 09/10/19 18:00 Last Admin: 09/10/19 14:41 Dose: 50 mcg Fentanyl (Sublimaze) Confirm Administered Dose 100 mcg .ROUTE .STK-MED ONE Stop: 09/10/19 13:52 Glycopyrrolate () Confirm Administered Dose 1 mg .ROUTE .STK-MED ONE Stop: 09/10/19 13:53 Hydromorphone HCl (Dilaudid) Confirm Administered Dose 0.5 mg .ROUTE .STK-MED ONE Stop: 09/10/19 12:53 Hydromorphone HCl (Dilaudid) Confirm Administered Dose 0.5 mg .ROUTE .STK-MED ONE Stop: 09/10/19 13:00 Hydromorphone HCl (Dilaudid) 0.5 mg IVPUSH Q10M PRN PRN Reason: Pain (severe 7-10) Stop: 09/10/19 18:00 Last Admin: 09/10/19 14:53 Dose: 0.5 mg Hydromorphone HCl (Dilaudid) Confirm Administered Dose 0.5 mg .ROUTE .STK-MED ONE Stop: 09/10/19 13:49 Lactated Ringer's (Ringers, Lactated) 1,000 mls @ 125 mls/hr IV ASDIRECTED [place] Stop: 09/10/19 23:00 Last Admin: 09/10/19 14:52 Dose: 125 mls/hr Lidocaine HCl (Xylocaine-Mpf 1%) Confirm Administered Dose 2 mls @ as directed .ROUTE .STK-MED ONE Stop: 09/10/19 08:51 Lactated Ringer's (Ringers, Lactated) Confirm Administered Dose 1,000 mls @ as directed .ROUTE .STK-MED ONE Stop: 09/10/19 09:14 Lidocaine HCl (Xylocaine-Mpf 1%) Confirm Administered Dose 4 mls @ as directed .ROUTE .STK-MED ONE Stop: 09/10/19 09:14 Iodine (Iodine 2% Mild Tincture) Confirm Administered Dose 30 ml .ROUTE .STK- MED ONE Stop: 09/10/19 11:10 Last Admin: 09/10/19 13:25 Dose: 18 ml Ketamine HCl (Ketalar) Confirm Administered Dose 500 mg .ROUTE .STK-MED ONE Stop: 09/10/19 12:25 Ketorolac Tromethamine (Toradol) 15 mg IVPUSH Q6H PRN PRN Reason: Pain Last Admin: 09/11/19 04:11 Dose: 15 mg Ketorolac Tromethamine (Toradol) Confirm Administered Dose 15 mg .ROUTE .STK- MED ONE Stop: 09/10/19 13:48 Labetalol HCl (Normodyne) Confirm Administered Dose 100 mg .ROUTE .STK-MED ONE Stop: 09/10/19 13:54 Lidocaine/Sodium Bicarbonate (Buffered Lidocaine 1% In Ns 8.4%) 0.25 ml IDERM ONETIME PRN PRN Reason: Prior to IV Start Stop: 09/10/19 18:00 Last Admin: 09/10/19 11:00 Dose: 0.25 ml Lisinopril (Prinivil) 40 mg PO DAILY [facility] Midazolam HCl (Versed 1 Mg/Ml) Confirm Administered Dose 2 mg .ROUTE .STK-MED ONE Stop: 09/10/19 13:02 Neostigmine Methylsulfate (Neostigmine) Confirm Administered Dose 5 mg .ROUTE .STK-MED ONE Stop: 09/10/19 13:53 Ondansetron HCl (Zofran) Confirm Administered Dose 4 mg .ROUTE .STK-MED ONE Stop: 09/10/19 09:14 Ondansetron HCl (Zofran) 4 mg IVPUSH ONETIME PRN PRN Reason: Nausea/Vomiting Stop: 09/10/19 18:00 Oxycodone HCl (Oxycontin) 10 mg PO ONETIME [facility] Stop: 09/10/19 18:00 Last Admin: 09/10/19 10:44 Dose: 10 mg Pregabalin (Lyrica) 50 mg PO ONETIME [facility] Stop: 09/10/19 18:00 Last Admin: 09/10/19 10:44 Dose: 50 mg Propofol (Diprivan 20 Ml) Confirm Administered Dose 400 mg .ROUTE .STK-MED ONE Stop: 09/10/19 09:14 Propofol (Diprivan 20 Ml) Confirm Administered Dose 400 mg .ROUTE .STK-MED ONE Stop: 09/10/19 12:23 Propofol (Diprivan 20 Ml) Confirm Administered Dose 200 mg .ROUTE .STK-MED ONE Stop: 09/10/19 12:57 Propofol (Diprivan 20 Ml) Confirm Administered Dose 400 mg .ROUTE .STK-MED ONE Stop: 09/10/19 12:58 Rocuronium Wright (Zemuron) Confirm Administered Dose 50 mg .ROUTE .STK-MED ONE Stop: 09/10/19 11:38 Ropivacaine (Naropin 0.5%) Confirm Administered Dose 30 ml .ROUTE .STK-MED ONE Stop: 09/10/19 08:50 Scopolamine (Transderm-Scop) 1.5 mg TOP ONETIME [facility] Stop: 09/10/19 18:00 Last Admin: 09/10/19 10:43 Dose: 1.5 mg Sodium Chloride (Saline Flush) 10 ml FLUSH ASDIRECTED PRN PRN Reason: Keep Vein Open Stop: 09/10/19 18:00 Tranexamic Acid (Cyklokapron) Confirm Administered Dose 1,000 mg .ROUTE .STK- MED ONE Stop: 09/10/19 11:10 Last Admin: 09/10/19 13:39 Dose: 1,000 mg Vancomycin HCl (Vancomycin) Confirm Administered Dose 1 gm .ROUTE .STK-MED ONE Stop: 09/10/19 11:10 Last Admin: 09/10/19 13:37 Dose: 1 gm
[2019-09-11] MEDS: Cholecalciferol (Vitamin D3) 25 MCG Tab PO SCH (08:37)
[2019-09-11] MEDS: Sucralfate 1 GM Tab PO SCH ×2 (08:37→12:34)
[2019-09-11] MEDS: Gabapentin 100 MG Cap PO SCH (08:37)
[2019-09-11] MEDS: Docusate Sodium 100 MG Cap PO SCH (08:37)
[2019-09-11] MEDS: Gabapentin 600 MG Tab PO SCH (08:37)
[2019-09-11] MEDS: Pantoprazole 40 MG Tab.CR PO SCH (08:38)
[2019-09-11] MEDS ORDERED: Lisinopril 20 MG Tab PO SCH (09:00)
[2019-09-11] MEDS ORDERED: Rivaroxaban 10 MG Tab PO SCH (09:00)
--- NOTE | 2019-09-11 09:33 | PCM48HPAN ---
Post Anesthesia Note - EVALUATION WITHIN 48HRS OF ANESTHETIC Vital Signs in Normal Range: Yes Patient Participated in Evaluation: Yes Respiratory Function Stable: Yes Airway Patent: Yes Cardiovascular Function Stable: Yes Hydration Status Stable: Yes Pain Control Satisfactory: Yes Nausea and Vomiting Control Satisfactory: Yes Mental Status Recovered: Yes (No complaints) Vital Signs: Last Vital Signs Temp 98.4 F 09/11/19 08:03 Pulse 79 09/11/19 08:03 Resp 16 09/11/19 08:03 BP 107/42 L 09/11/19 08:03 Pulse Ox 95 09/11/19 08:03
[2019-09-11] MEDS ORDERED: Ketorolac 15 MG/ML SDV IVPUSH ONE (12:30)
[2019-09-11 12:52] VITALS: BP 142/71; PULSE 89
--- NOTE | 2019-09-13 09:28 | PCM.OPNOTE ---
- General Post-Op/Procedure Note Date of Surgery/Procedure: 09/10/19 Operative Procedure(s): left total knee arthroplasty Pre Op Diagnosis: left knee osteoarthrosis Post-Op Diagnosis: Same Anesthesia Technique: General ET Tube, Local Primary Surgeon: Carlos Mckinney Anesthesia Provider: Yue Herrera Manager Medicaid: Reba Felder Manager Medicaid: Li Marino EBL in mLs: 100 Complications: None Condition: Good Free Text/Narrative:: 2 femur 2 tibia 9mm TS 29x9
--- NOTE | 2019-09-13 10:00 | OR ---
DATE OF OPERATION: 09/10/2019 SURGEON: Carlos Mckinney MD OPERATION PERFORMED: Left total knee arthroplasty. PREOPERATIVE DIAGNOSIS: Left knee osteoarthrosis. POSTOPERATIVE DIAGNOSIS: Left knee osteoarthrosis. ANESTHESIA: General endotracheal intubation with local. ANESTHESIA PROVIDER: Dominga Watters CRNA. ASSISTANTS: Reba Felder PA-C and Li Marino LPN. ESTIMATED BLOOD LOSS: 100 mL. COMPLICATIONS: None. CONDITION: Stable. IMPLANTS: 1. [place] size 2 cemented PS femur. 2. [place] size 2 cemented [place] tibial baseplate. 3. [place] size 2, 9 mm TS polyethylene insert. 4. Ray size 29 x 9 mm cemented asymmetric patella. DESCRIPTION OF PROCEDURE: The patient was identified in the preop holding area. Proper site was marked and identified by the surgeon. The patient was taken back to the operating theater. After adequate anesthesia, the patient's left lower extremity had a nonsterile tourniquet applied and it was sterilely prepped and draped in the usual sterile fashion. OR time-out was performed. The patient received 2 g IV Ancef. At this time, the left lower extremity was exsanguinated. Tourniquet was insufflated to 300 mmHg. Standard medial parapatellar incision was made. Medial parapatellar arthrotomy was created. Deep fibers of the MCL were raised and anterior fat pad was resected. At this time, attention was turned to the patella. Patella measured 21, it was resected to a 13 for 29 x 9 mm patella. Drill holes were then drilled and found to be in adequate position. The drill was then drilled in the distal femur and the intramedullary distal femoral cutting guide was then placed. 8 mm was resected off the distal femur and was found to be an adequate resection. Sizing guide was placed. It was found to be a size 2 cemented PS femur that was shown on the implant record at the beginning of this dictation. The drill holes were drilled for the epicondylar axis using [place] line and epicondyles as reference. At this time, the 4-in-1 cutting block was placed. An anterior posterior and anterior and posterior chamfer cuts were then completed. Box cut was completed at this time. Attention was turned to the tibia. The posterior medial lateral retractors were placed. The extramedullary tibial guide was placed. It was placed in the old footprint of the ACL. It was aligned with the center of the ankle and 0 degrees of slope, 9 mm was then resected off the unaffected side. There was found to be an acceptable reduction. At this time, posterior osteophytes were removed along with medial and lateral meniscus. A trial implant was placed with a correct sized tibia that was mentioned at the beginning of the dictation. A Ray size 2, 9 mm TS polyethylene insert was then placed. The patient's knee was brought through range of motion. The patella was tracking centrally and was stable to varus and valgus stress. Alignment was found to be roughly at 0 degrees. The tibia was stamped and drilled in proper rotation. The universal tibial base plate was impacted in place. Next, the Ray size 2 cemented PS femur impacted into place and the [place] size 2, 9 mm TS polyethylene insert was placed. The patient's knee was brought into full extension. The patella was then cemented in place at this time. One liter dilute Betadine solution was irrigated through the knee along with 3 L of pulse lavage irrigation with Ancef. Periarticular injection was then completed. The patient's knee was brought through a range of motion. Once the cement had time to set up and it was found to be stable to varus valgus stress, the patella was tracking centrally with full range of motion. At this time, a #2 barbed suture was used for closure of the medial parapatellar arthrotomy. Topical tranexamic acid was placed. 2-0 Vicryl was used subcutaneously, Prineo was used for the skin. The patient tolerated the procedure well and was sent to the PACU in stable condition. MMODAL /[id number] KRISTIN
== END 2019-09-11 13:13 | disposition home or self-care (01) | DRG 470 ==
LOC: JD.SDS 10:22 → JD.MS 10:24 → JD.SDS 14:20 → JD.MS 14:21
PROVIDERS: ADMIT Orthopaedic Surgery; ATTEND Orthopaedic Surgery
PROC: 0SRD0J9 Replacement of Left Knee Joint with Synthetic Substitute, Cemented, Open Approach (ICD-10-PCS; principal; 2019-09-10)
DX: M17.12 Unilateral primary osteoarthritis, left knee (principal); M35.3 Polymyalgia rheumatica; I10 Essential (primary) hypertension; F41.9 Anxiety disorder, unspecified; G47.00 Insomnia, unspecified; E55.9 Vitamin D deficiency, unspecified; M81.0 Age-related osteoporosis without current pathological fracture; G89.29 Other chronic pain; M54.5 Low back pain; K21.9 Gastro-esophageal reflux disease without esophagitis; E66.9 Obesity, unspecified; R13.10 Dysphagia, unspecified; I35.8 Other nonrheumatic aortic valve disorders; D50.9 Iron deficiency anemia, unspecified; F43.20 Adjustment disorder, unspecified; R27.0 Ataxia, unspecified; L82.1 Other seborrheic keratosis; E53.8 Deficiency of other specified B group vitamins; K44.9 Diaphragmatic hernia without obstruction or gangrene; E78.5 Hyperlipidemia, unspecified; Z88.0 Allergy status to penicillin; Z98.890 Other specified postprocedural states; Z88.8 Allergy status to other drugs, medicaments and biological substances; Z79.899 Other long term (current) drug therapy
CPT/HCPCS: 01402; 36415; 64450; 73560-26-LT; 73560-LT; 80053; 85027; 87641; 94760; 97110-GP; 97116-GP; 97161-GP; 97165-GO; 97535-GO; 99222; 99232; A9270-GY; C1713; C1776; J0171; J0690; J0697; J1100; J1170; J1885; J2001; J2250; J2270; J2405; J2704; J2710; J2795; J3010; J3370; J3490; J7120

== ENCOUNTER 2019-09-17 18:06 | Emergency (ER) | payer MEDICARE, BC ==
[2019-09-17 18:19] VITALS: BP 133/61; PULSE 87
--- NOTE | 2019-09-17 18:38 | EDM.PDOC ---
ED HPI GENERAL MEDICAL PROBLEM - General Chief Complaint: Lower Extremity Injury/Pain Stated Complaint: LEG PAIN POST SURGERY Time Seen by Provider: 09/17/19 18:29 Source of Information: Reports: Patient History Limitations: Reports: No Limitations - History of Present Illness INITIAL COMMENTS - FREE TEXT/NARRATIVE: Patient is a 73-year-old female who presents with complaints of left groin pain radiating down her leg. She recently had a left total knee replacement done by Dr. Mckinney on 10 September. States she has had this pain fairly constantly since the surgery, however it seems like it is getting worse. She has been in contact with Dr. Mckinney numerous times this week. She did speak with him today and he recommended she come to the ER to have an ultrasound of the leg done. She has an appointment scheduled with him tomorrow. She is currently on Xarelto and has been taking that since the surgery. Denies any sharp pains in her chest or shortness of breath. Left Groin Pain Score (Numeric/FACES): 9 - Related Data Allergies Allergy/AdvReac Type Severity Reaction Status Date / Time Penicillins Allergy Rash Verified 09/17/19 18:15 lorazepam [From Ativan] AdvReac Agitation Verified 09/17/19 18:15 meloxicam AdvReac GI UPSET Verified 09/17/19 18:15 Home Meds: Home Meds Cyanocobalamin (Vitamin B-12) [Cyanocobalamin Injection] 1,000 mcg IM Q30D 12/13 [History] Gabapentin 800 mg PO TID 12/13/14 [History] Pantoprazole [ProTONIX] 40 mg PO BID 12/13/14 [History] Cholecalciferol (Vitamin D3) [Vitamin D3] 2,000 units PO BID 12/16/14 [History] Ondansetron 4 mg PO QID PRN 09/03/16 [History] Estradiol Valerate 20 mg IM Q30D 09/07/19 [History] Menthol [Biofreeze] 1 dose TOP QID PRN 09/07/19 [History] Sucralfate [Carafate] 1 gm PO QID 09/07/19 [History] hydroCHLOROthiazide [Hydrochlorothiazide] 12.5 mg PO DAILY 09/07/19 [History] lisinopriL [Lisinopril] 40 mg PO DAILY 09/07/19 [History] quiNINE sulfate [Quinine Sulfate] 324 mg PO BEDTIME 09/07/19 [History] Acetaminophen/oxyCODONE [Percocet 325-5 MG] 1 - 2 tab PO Q4H PRN #60 tablet 06/20 [Rx] Cyclobenzaprine [Flexeril] 5 mg PO BID PRN #30 tablet 09/11/19 [Rx] Docusate Sodium [Colace] 100 mg PO BID cap 09/11/19 [Rx] Magnesium Hydroxide [Milk of Magnesia] 30 ml PO BID PRN cup 09/11/19 [Rx] Rivaroxaban [Xarelto] 10 mg PO DAILY #30 tablet 09/11/19 [Rx] Sennosides [Senna] 8.6 mg PO BID PRN tablet 09/11/19 [Rx] bisacodyL [Dulcolax] 5 mg PO DAILY PRN tablet 09/11/19 [Rx] Past Medical History HEENT History: Reports: Impaired Vision Other HEENT History: Uses reading glasses, full dentures Cardiovascular History: Reports: Heart Murmur, High Cholesterol, Hypertension, Other (See Below) Other Cardiovascular History: lower extremity edema. Takes PRN lasix and potassium. Respiratory History: Reports: SOB Gastrointestinal History: Reports: GERD, PUD, Other (See Below) Other Gastrointestinal History: dysphagia, hematochezia Genitourinary History: Reports: UTI, Recurrent [employer] SERVICES MANAGER History: Reports: Polycystic Ovaries, Other CON[employer]ION SERVICES MANAGER History: x 2 Musculoskeletal History: Reports: Arthritis, Back Pain, Chronic, Osteoarthritis , Other (See Below) Other Musculoskeletal History: Right ankle pain, foot arthritis, bilateral hip arthritis, bilateral carpal tunnel syndrome, neuroforaminal stenosis, facet joint degenerative arthritis, R shoulder impingment syndrome, muscle cramps, myofasical pain, polymyalgia rheumatica, cervical spine stenosis, lower extremity weakness Neurological History: Reports: Other (See Below) Other Neuro History: ataxia, frequent falls, polyneuropathy, c spine stenosis, neck pain Psychiatric History: Reports: Panic Attack, Other (See Below) Other Psychiatric History: insomnia Endocrine/Metabolic History: Reports: Obesity/BMI 30+, Vitamin D Deficiency Hematologic History: Reports: Anemia, Iron Deficiency, Other (See Below) Other Hematologic History: multiple contusions, vitamin b 12 deficiency Immunologic History: Reports: Other (See Below) Other Immunologic History: polymyalgia rheumatica Oncologic (Cancer) History: Reports: Basal Cell Carcinoma Dermatologic History: Reports: Other (See Below) Other Dermatologic History: seborrheic keratosis - Infectious Disease History Infectious Disease History: Reports: Chicken Pox, MRSA, Mumps Other Infectious Disease History: 2008 - Past Surgical History HEENT Surgical History: Reports: Eye Surgery, Tonsillectomy Cardiovascular Surgical History: Reports: None Respiratory Surgical History: Reports: None GI Surgical History: Reports: Colonoscopy, EGD, Hernia Repair/Other Other GI Surgeries/Procedures: partial gastrectomy Female Surgical History: Reports: Hysterectomy Endocrine Surgical History: Reports: None Neurological Surgical History: Reports: Other (See Below) Other Neurological Surgeries/Procedures: posts in back. Musculoskeletal Surgical History: Reports: Carpal Tunnel, Hip Replacement, Knee Replacement, Shoulder Replacement, Other (See Below) Other Musculoskeletal Surgeries/Procedures:: bilateral carpal tunnel release, left foot bunionectomy, right knee replacement, bilateral hip replacments Oncologic Surgical History: Reports: None Dermatological Surgical History: Reports: None, Skin Biopsy Social & Family History - Family History Family Medical History: Noncontributory - Tobacco Use Smoking Status *Q: Never Smoker - Caffeine Use Caffeine Use: Reports: None Caffeine Use Comment: 4 cans diet pepsi daily - Recreational Drug Use Recreational Drug Use: No Review of Systems - Review of Systems Review Of Systems: Comprehensive ROS is negative, except as noted in HPI. ED EXAM, GENERAL - Physical Exam Exam: See Below Exam Limited By: No Limitations General Appearance: Alert, WD/WN, No Apparent Distress Respiratory/Chest: No Respiratory Distress, Lungs Clear, Normal Breath Sounds, No Accessory Muscle Use, Chest Non-Tender Cardiovascular: Normal Peripheral Pulses, Regular Rate, Rhythm, No Edema, No Gallop, No JVD, No Murmur, No Rub Extremities: Normal Inspection, Leg Pain (Left leg. Tender to the medial aspect of the left upper thigh. 1+ generalized edema with scattered areas of ecchymosis throughout the left leg. Surgical bandages still intact to the left anterior knee.) Psychiatric: Normal Affect, Normal Mood Skin Exam: Warm, Dry, Intact, Normal Color, No Rash Course - Vital Signs Last Recorded V/S: Last Vital Signs Temp 98.4 F 09/17/19 18:16 Pulse 87 09/17/19 18:16 Resp 12 09/17/19 18:16 BP 133/61 09/17/19 18:16 Pulse Ox 96 09/17/19 18:16 - Orders/Labs/Meds Meds: Medications Discontinued Medications Generic Name Dose Route Start Last Admin Trade Name Randy PRN Reason Stop Dose Admin Oxycodone/Acetaminophen 1 tab 09/17/19 19:29 09/17/19 19:30 Percocet 325-5 Mg PO 09/17/19 19:30 1 tab ONETIME ONE Administration Oxycodone/Acetaminophen 1 tab 09/17/19 19:35 09/17/19 19:30 Percocet 325-5 Mg PO 09/17/19 19:36 1 tab ONETIME STA Administration - Re-Assessments/Exams Free Text/Narrative Re-Assessment/Exam: 09/17/19 20:24 Ultrasound was negative for any DVTs. Patient has a follow-up appoint with Dr. Mckinney at 1030 tomorrow morning. We will discharge home at this time. Discharge instructions as documented. Departure - Departure Time of Disposition: 20:25 Disposition: Home, Self-Care 01 Condition: Fair Clinical Impression: Postoperative pain of left knee - Discharge Information *PRESCRIPTION DRUG MONITORING PROGRAM REVIEWED*: No *COPY OF PRESCRIPTION DRUG MONITORING REPORT IN PATIENT [place]: No Referrals: Keon Marie MD [Primary Care Provider] - Carlos Mckinney MD [Physician] - Forms: ED Department Discharge Additional Instructions: You were seen in the emergency department tonight for pain to your left leg after knee replacement surgery. An ultrasound of the leg was done and shows no sign of a blood clot. Recommend that you continue to use the pain medications that were prescribed by Dr. Mckinney and follow his discharge plan of care. Follow- up with him tomorrow morning as currently scheduled. If you should experience any worsening symptoms, please do not hesitate to return to the emergency department. Sepsis Event Note - Evaluation Sepsis Screening Result: No Definite Risk - Focused Exam Vital Signs: Vital Signs Temp Pulse Resp BP Pulse Ox 09/17/19 18:16 98.4 F 87 12 133/61 96 Date Exam was Performed: 09/17/19 Time Exam was Performed: 20:24
[2019-09-17] MEDS ORDERED: Acetaminophen/oxyCODONE 325-5 MG Tab PO ONE (19:29)
[2019-09-17] MEDS ORDERED: Acetaminophen/oxyCODONE 325-5 MG Tab PO STA (19:35)
--- NOTE | 2019-09-17 20:18 | US ---
Left lower extremity deep venous ultrasound: Duplex and color Doppler evaluation was obtained of the left common femoral, proximal greater saphenous, superficial femoral, popliteal, posterior tibial and peroneal veins. Right common femoral vein was also evaluated. Technologist's note: Exam slightly complicated by a erratic leg movements due to to pain Findings: Normal phasic flow, augmentation or compression is seen. Impression: 1. No evidence of deep venous thrombosis within left lower extremity or within the right common femoral vein. Diagnostic code #1 Study was dictated in [place] Standard Time
== END 2019-09-17 20:40 | disposition home or self-care (01) ==
LOC: JD.ED 18:06
DX: G89.18 Other acute postprocedural pain (principal); M25.562 Pain in left knee; I10 Essential (primary) hypertension; K21.9 Gastro-esophageal reflux disease without esophagitis; K27.9 Peptic ulcer, site unspecified, unspecified as acute or chronic, without hemorrhage or perforation; E66.9 Obesity, unspecified; Z68.31 Body mass index [BMI] 31.0-31.9, adult; Z88.0 Allergy status to penicillin; Z88.8 Allergy status to other drugs, medicaments and biological substances; Z88.6 Allergy status to analgesic agent; Z79.01 Long term (current) use of anticoagulants; Z79.899 Other long term (current) drug therapy; Z96.652 Presence of left artificial knee joint
CPT/HCPCS: 93971; 99283; A9270